=== PATIENT | female | born 1950 | race Caucasian/White ===

== ENCOUNTER 2016-06-04 04:11 | Emergency (ER) | payer MEDICARE ==
[~2016-06-04] VITALS: Ht 154.9 cm; Wt 107.7 kg
[~2016-06-04 04:11] MED LIST: ALDACTONE 100M100 MG PO; ARIMIDEX1 MG PO; ARMIDEX; BIAXIN 500MG T500 MG PO; CEFTIN 250250 MG/TAB PO; CEFTIN500 MG PO; CRESTOR5 MG PO; ENULOSE10 GM/15 M PO; ENULOSE10 GM/151 PO; HCTZ 25MG25 MG PO; HYGROTON25 MG PO; K-TAB20 PO; LASIX 20MG TABL20 MG PO; LEVAQUIN 5500 MG/TA1 PO; LEVAQUIN 750MG750 M1 PO; LEXAPRO 10MG10 MG PO; LEXAPRO 5MG5 MG PO; LEXAPRO10 MG PO; MYRBETR25MG PO; OMNICEF 300MG300 MG PO; PERCOCET 325 MG1 TA2 PO; PHENERGAN 25 TA25 MG PO; PRILOSEC 20MG20 MG PO; PYRIDIUM200 M1 PO; ROXICODONE 55 MG/TAB PO; ULTRAM 50MG TAB50 MG PO; VESICARE; VESICARE10 MG PO; XIFAXAN550 MG PO; ZOFRAN 4MG T4 MG/TAB PO; [UNRECOGNIZED DRUG - REMARK]; [UNRECOGNIZED DRUG - REMARK]
[2016-06-04 04:12] VITALS: TEMP 98.1
[2016-06-04 04:39] LABS: BASO % 0.5 % (0.0-2.0); EOS # 0.1 (0.0-0.7); EOS % 2.9 % (0-4.0); GRAN # 1.4 (1.4-6.5); GRAN % 68.2 % (42.2-75.2); LYMPH # 0.4 (1.2-3.4); LYMPH % 18.1 % (20.0-51.0); MEAN CELL VOLUME 95 fl (80.0-100.0); MEAN CORPUSCULAR HGB CONC 33 g/dl (33.0-37.0); MEAN PLATELET VOLUME 11.9 fl (7.4-10.4); MONO # 0.2 (0.1-0.6); MONO % 9.8 % (1.7-9.3); RED BLOOD COUNT 3.51 M/mm3 (4.10-5.30); REDCELL DISTRIBUTION WIDTH-CV 13.9 % (11.5-14.5)
[2016-06-04 04:44] LABS: INR 1.4 (0.8-3.0); PROTHROMBIN TIME 15.3 SECONDS (9.7-12.8)
[2016-06-04 04:45] LABS: HEMATOCRIT 33.4 % (37.0-47.0); HEMOGLOBIN 10.9 g/dl (12.5-16.0); MEAN CORPUSCULAR HEMOGLOBIN 31 pg (27.0-31.0)
[2016-06-04 04:46] LABS: PLATELET COUNT 44 K/mm3 (130-400)
[2016-06-04 04:48] LABS: ADJUSTED CALCIUM 9.3 mg/dL (8.4-10.2); ALANINE AMINOTRANSFERASE 44 U/L (9-52); ALKALINE PHOSPHATASE 90 U/L (50-136); ANION GAP 9 mmol/L (7-16); BILIRUBIN,TOTAL 2.1 mg/dL (0.0-1.0); BLOOD UREA NITROGEN 10 mg/dL (7-17); CALCIUM 8.5 mg/dL (8.4-10.2); CARBON DIOXIDE 24 mmol/L (22-30); CHLORIDE 109 mmol/L (98-107); CREATININE, serum 0.54 mg/dL (0.52-1.25); GLUCOSE 97 mg/dL (74-106); POTASSIUM 4.1 mmol/L (3.4-5.0); SODIUM 141 mmol/L (137-145)
[2016-06-04 04:59] LABS: B-TYPE NATRIURETIC PEPTIDE 54 pg/mL (0-125)
[2016-06-04 05:01] LABS: TROPONIN-I < 0.012 ng/mL (0.000-0.034)
[2016-06-04 05:36] VITALS: BP 134/82; PULSE 94
[2016-12-13] MEDS ORDERED: CEFTIN500 MG PO (03:13)
== END 2016-06-04 05:45 | disposition home or self-care (01) ==
LOC: COL.ER 04:11
PROVIDERS: Emergency Medicine
DX: J06.9 Acute upper respiratory infection, unspecified (principal); R07.9 Chest pain, unspecified; M54.9 Dorsalgia, unspecified

== ENCOUNTER 2016-06-05 07:55 | Emergency (ER) | payer MEDICARE ==
[~2016-06-05] VITALS: Ht 154.9 cm; Wt 107.7 kg
[2016-06-05 07:56] VITALS: TEMP 98.6
[2016-06-05 08:33] LABS: BASO % 0.5 % (0.0-2.0); EOS % 1.4 % (0-4.0); GRAN # 1.2 (1.4-6.5); GRAN % 59.3 % (42.2-75.2); LYMPH # 0.5 (1.2-3.4); MEAN CELL VOLUME 95 fl (80.0-100.0); MEAN CORPUSCULAR HGB CONC 33 g/dl (33.0-37.0); MEAN PLATELET VOLUME 12.4 fl (7.4-10.4); MONO # 0.3 (0.1-0.6); MONO % 16.3 % (1.7-9.3); RED BLOOD COUNT 3.53 M/mm3 (4.10-5.30); REDCELL DISTRIBUTION WIDTH-CV 14.1 % (11.5-14.5); WHITE BLOOD COUNT 2.1 K/mm3 (4.8-10.8)
[2016-06-05 08:36] LABS: HEMATOCRIT 33.4 % (37.0-47.0); HEMOGLOBIN 11.1 g/dl (12.5-16.0); MEAN CORPUSCULAR HEMOGLOBIN 31 pg (27.0-31.0)
[2016-06-05 08:38] LABS: PLATELET COUNT 40 K/mm3 (130-400)
[2016-06-05 08:46] LABS: ADJUSTED CALCIUM 9.1 mg/dL (8.4-10.2); ALBUMIN 2.9 gm/dL (3.5-5.0); BILIRUBIN,TOTAL 2.6 mg/dL (0.0-1.0); CALCIUM 8.2 mg/dL (8.4-10.2); CREATININE, serum 0.53 mg/dL (0.52-1.25); POTASSIUM 3.7 mmol/L (3.4-5.0)
[2016-06-05 09:01] LABS: PH 7 (5-8); SQUAMOUS EPITHELIAL 0-2 /hpf; URINE APPEARANCE Clear; URINE BACTERIA None Seen /hpf; URINE BILIRUBIN Negative (NEGATIVE); URINE BLOOD Negative (NEGATIVE); URINE COLOR Yellow; URINE GLUCOSE Negative (NEGATIVE); URINE KETONE Negative (NEGATIVE); URINE RBC 0-2 /hpf; URINE UROBILINOGEN >=4.0 mg/dL (NEGATIVE); URINE WBC 0-2 /hpf
[2016-06-05 10:07] VITALS: BP 144/71; PULSE 81
[2016-12-13] MEDS ORDERED: CEFTIN500 MG PO (03:13)
== END 2016-06-05 10:06 | disposition home or self-care (01) ==
LOC: COL.ER 07:55
PROVIDERS: Physician Assistant
DX: M54.5 Low back pain (principal)
CPT/HCPCS: J1885; J3010

== ENCOUNTER 2016-12-10 13:29 | Emergency (ER) | payer MEDICARE ==
[~2016-12-10] VITALS: Ht 157.5 cm; Wt 107.7 kg
[2016-12-10 13:46] VITALS: TEMP 98.3
[2016-12-10 15:52] LABS: BASO % 0.4 % (0.0-2.0); EOS # 0.1 (0.0-0.7); GRAN # 1.3 (1.4-6.5); GRAN % 54.6 % (42.2-75.2); HEMOGLOBIN 12.1 g/dl (12.5-16.0); LYMPH # 0.8 (1.2-3.4); LYMPH % 32.6 % (20.0-51.0); MEAN CELL VOLUME 97 fl (80.0-100.0); MEAN CORPUSCULAR HEMOGLOBIN 33 pg (27.0-31.0); MEAN CORPUSCULAR HGB CONC 34 g/dl (33.0-37.0); MEAN PLATELET VOLUME 11.8 fl (7.4-10.4); MONO # 0.2 (0.1-0.6); MONO % 7.4 % (1.7-9.3); RED BLOOD COUNT 3.67 M/mm3 (4.10-5.30); REDCELL DISTRIBUTION WIDTH-CV 13.3 % (11.5-14.5); WHITE BLOOD COUNT 2.4 K/mm3 (4.8-10.8)
[2016-12-10 15:56] LABS: PH 7 (5-8); URINE APPEARANCE Turbid; URINE BACTERIA Rare /hpf; URINE BILIRUBIN Negative (NEGATIVE); URINE BLOOD Negative (NEGATIVE); URINE COLOR Amber; URINE GLUCOSE Negative (NEGATIVE); URINE KETONE Negative (NEGATIVE); URINE RBC 0-2 /hpf; URINE UROBILINOGEN >=4.0 mg/dL (NEGATIVE)
[2016-12-10 15:57] LABS: HEMATOCRIT 35.7 % (37.0-47.0)
[2016-12-10 16:01] LABS: PLATELET COUNT 42 K/mm3 (130-400)
[2016-12-10 16:08] LABS: ADJUSTED CALCIUM 9.4 mg/dL (8.4-10.2); ALANINE AMINOTRANSFERASE 34 U/L (9-52); ALBUMIN 3.2 gm/dL (3.5-5.0); ALKALINE PHOSPHATASE 82 U/L (50-136); ANION GAP 7 mmol/L (7-16); BILIRUBIN,TOTAL 2.2 mg/dL (0.0-1.0); BLOOD UREA NITROGEN 16 mg/dL (7-17); CALCIUM 8.8 mg/dL (8.4-10.2); CARBON DIOXIDE 26 mmol/L (22-30); CHLORIDE 110 mmol/L (98-107); CREATINE KINASE 76 U/L (30-135); GLUCOSE 81 mg/dL (74-106); POTASSIUM 3.8 mmol/L (3.4-5.0); SODIUM 143 mmol/L (137-145); TOTAL PROTEIN 6.9 gm/dL (6.4-8.2)
[2016-12-10 16:26] LABS: TROPONIN-I < 0.012 ng/mL (0.000-0.034)
[2016-12-10 17:02] VITALS: BP 142/78; PULSE 76
[2016-12-13] MEDS ORDERED: CEFTIN500 MG PO (03:13)
== END 2016-12-10 17:03 | disposition home or self-care (01) ==
LOC: COL.ER 13:29
PROVIDERS: Emergency Medicine
DX: D61.818 Other pancytopenia (principal); I10 Essential (primary) hypertension; Z87.891 Personal history of nicotine dependence; Z87.19 Personal history of other diseases of the digestive system; Z87.440 Personal history of urinary (tract) infections; Z90.49 Acquired absence of other specified parts of digestive tract; Z98.890 Other specified postprocedural states
CPT/HCPCS: J7030

== ENCOUNTER 2017-01-07 18:19 | Emergency (ER) | payer MEDICARE ==
[~2017-01-07] VITALS: Ht 157.5 cm; Wt 101.7 kg
[2017-01-07 18:29] VITALS: BP 151/67; TEMP 97.8
[2017-01-07 19:05] LABS: PH 5 (5-8); URINE APPEARANCE Cloudy; URINE BACTERIA None Seen /hpf; URINE BILIRUBIN Negative (NEGATIVE); URINE BLOOD 2+ (NEGATIVE); URINE COLOR Amber; URINE GLUCOSE Negative (NEGATIVE); URINE KETONE Negative (NEGATIVE); URINE RBC 20-50 /hpf; URINE WBC None Seen /hpf
[2017-01-07 19:20] LABS: BASO % 0.5 % (0.0-2.0); EOS # 0.1 (0.0-0.7); EOS % 3.9 % (0-4.0); GRAN # 1.3 (1.4-6.5); GRAN % 62.4 % (42.2-75.2); LYMPH # 0.5 (1.2-3.4); LYMPH % 24.9 % (20.0-51.0); MEAN CELL VOLUME 97 fl (80.0-100.0); MEAN CORPUSCULAR HGB CONC 34 g/dl (33.0-37.0); MEAN PLATELET VOLUME 11.8 fl (7.4-10.4); MONO # 0.2 (0.1-0.6); MONO % 8.3 % (1.7-9.3); PLATELET COUNT 56 K/mm3 (130-400); RED BLOOD COUNT 3.35 M/mm3 (4.10-5.30); REDCELL DISTRIBUTION WIDTH-CV 14.4 % (11.5-14.5); WHITE BLOOD COUNT 2.1 K/mm3 (4.8-10.8)
[2017-01-07 19:27] LABS: ADJUSTED CALCIUM 9.5 mg/dL (8.4-10.2); BILIRUBIN,TOTAL 1.8 mg/dL (0.0-1.0); CALCIUM 8.7 mg/dL (8.4-10.2); CREATININE, serum 0.46 mg/dL (0.52-1.25); TOTAL PROTEIN 6.6 gm/dL (6.4-8.2)
[2017-01-07 19:31] LABS: HEMATOCRIT 32.6 % (37.0-47.0); HEMOGLOBIN 11.1 g/dl (12.5-16.0); MEAN CORPUSCULAR HEMOGLOBIN 33 pg (27.0-31.0)
[2017-01-07 21:03] VITALS: PULSE 74
== END 2017-01-07 21:03 | disposition home or self-care (01) ==
LOC: COL.ER 18:19
PROVIDERS: Physician Assistant
DX: R19.7 Diarrhea, unspecified (principal); R10.2 Pelvic and perineal pain; R31.29 Other microscopic hematuria; M54.5 Low back pain; R11.0 Nausea; N20.0 Calculus of kidney; K74.60 Unspecified cirrhosis of liver; D69.6 Thrombocytopenia, unspecified; D72.819 Decreased white blood cell count, unspecified; R30.0 Dysuria
CPT/HCPCS: J2405; J3010; J7040

== ENCOUNTER 2017-02-04 19:53 | Inpatient (IN) | payer MEDICARE ==
[~2017-02-04] VITALS: Ht 157.5 cm; Wt 106.4 kg
[2017-02-04] MEDS ORDERED: VESICARE10 MG PO (19:56)
[2017-02-04 20:29] LABS: EOS % 0.5 % (0-4.0); GRAN # 3.5 (1.4-6.5); GRAN % 82.7 % (42.2-75.2); HEMOGLOBIN 12.2 g/dl (12.5-16.0); LYMPH # 0.4 (1.2-3.4); LYMPH % 8.9 % (20.0-51.0); MEAN CELL VOLUME 97 fl (80.0-100.0); MEAN CORPUSCULAR HEMOGLOBIN 33 pg (27.0-31.0); MEAN CORPUSCULAR HGB CONC 35 g/dl (33.0-37.0); MEAN PLATELET VOLUME 12.5 fl (7.4-10.4); MONO # 0.3 (0.1-0.6); MONO % 7.7 % (1.7-9.3); RED BLOOD COUNT 3.67 M/mm3 (4.10-5.30); REDCELL DISTRIBUTION WIDTH-CV 13.7 % (11.5-14.5); WHITE BLOOD COUNT 4.2 K/mm3 (4.8-10.8)
[2017-02-04 20:40] LABS: HEMATOCRIT 35.4 % (37.0-47.0)
[2017-02-04 20:41] LABS: PLATELET COUNT 44 K/mm3 (130-400)
[2017-02-04 20:47] LABS: PH 8 (5-8); SQUAMOUS EPITHELIAL 0-2 /hpf; URINE APPEARANCE Clear; URINE BACTERIA None Seen /hpf; URINE BILIRUBIN Negative (NEGATIVE); URINE BLOOD Negative (NEGATIVE); URINE COLOR Yellow; URINE GLUCOSE Negative (NEGATIVE); URINE KETONE Negative (NEGATIVE); URINE UROBILINOGEN >=4.0 mg/dL (NEGATIVE)
[2017-02-04 20:48] LABS: URINE WBC >50 /hpf
[2017-02-04 20:54] LABS: ADJUSTED CALCIUM 9.4 mg/dL (8.4-10.2); BILIRUBIN,TOTAL 2.6 mg/dL (0.0-1.0); C-REACTIVE PROTEIN 1.1 mg/dL (0.0-0.9); CALCIUM 8.6 mg/dL (8.4-10.2); CREATININE, serum 0.49 mg/dL (0.52-1.25); POTASSIUM 3.5 mmol/L (3.4-5.0); TOTAL PROTEIN 6.8 gm/dL (6.4-8.2)
[2017-02-04 21:07] LABS: INFLUENZA B NEGATIVE
[2017-02-04 22:07] VITALS: BP 112/63; PULSE 107; TEMP 98.4
[2017-02-05 03:29] VITALS: BP 134/68; PULSE 91; TEMP 98.1
[2017-02-05 07:37] LABS: BASO % 0.3 % (0.0-2.0); CREATININE, serum 0.45 mg/dL (0.52-1.25); GRAN # 2.4 (1.4-6.5); GRAN % 80.3 % (42.2-75.2); LYMPH # 0.3 (1.2-3.4); LYMPH % 9.2 % (20.0-51.0); MEAN CELL VOLUME 98 fl (80.0-100.0); MEAN CORPUSCULAR HGB CONC 34 g/dl (33.0-37.0); MEAN PLATELET VOLUME 13.6 fl (7.4-10.4); MONO # 0.3 (0.1-0.6); MONO % 9.5 % (1.7-9.3); POTASSIUM 3.6 mmol/L (3.4-5.0); RED BLOOD COUNT 3.48 M/mm3 (4.10-5.30); REDCELL DISTRIBUTION WIDTH-CV 13.9 % (11.5-14.5)
[2017-02-05 07:45] LABS: HEMOGLOBIN 11.6 g/dl (12.5-16.0); MEAN CORPUSCULAR HEMOGLOBIN 33 pg (27.0-31.0)
[2017-02-05 07:46] LABS: PLATELET COUNT 31 K/mm3 (130-400)
[2017-02-05 08:10] VITALS: BP 137/69; PULSE 96; TEMP 100.9
[2017-02-05 11:31] VITALS: BP 119/59; PULSE 85; TEMP 99.2
[2017-02-05 15:16] VITALS: BP 109/59; PULSE 83; TEMP 98.4
[2017-02-05 20:32] VITALS: BP 149/84; PULSE 94; TEMP 98.8
[2017-02-06] VITALS (7 sets, daily range): BP systolic 109–138; BP diastolic 57–86; PULSE 72–83; TEMP 97.8–99.7
[2017-02-06 08:30] LABS: MEAN CELL VOLUME 99 fl (80.0-100.0); MEAN CORPUSCULAR HGB CONC 33 g/dl (33.0-37.0); MEAN PLATELET VOLUME 12.6 fl (7.4-10.4); RED BLOOD COUNT 3.42 M/mm3 (4.10-5.30); REDCELL DISTRIBUTION WIDTH-CV 14.3 % (11.5-14.5); WHITE BLOOD COUNT 2.1 K/mm3 (4.8-10.8)
[2017-02-06 08:38] LABS: HEMATOCRIT 33.7 % (37.0-47.0); HEMOGLOBIN 11.2 g/dl (12.5-16.0); MEAN CORPUSCULAR HEMOGLOBIN 33 pg (27.0-31.0)
[2017-02-06 08:40] LABS: PLATELET COUNT 31 K/mm3 (130-400)
[2017-02-06 08:41] LABS: ADD PATHOLOGY DIFF REVIEW NO
[2017-02-06 09:04] LABS: BAND 60 % (0-10); NEUTROPHILS 26 % (42.0-75.2); TOTAL CELLS COUNTED 100
[2017-02-06 09:05] LABS: PLATELET ESTIMATE DECREASED (NORMAL)
[2017-02-06 09:06] LABS: TOXIC GRANULATION PRESENT
[2017-02-07 04:54] VITALS: BP 114/61; PULSE 69; TEMP 97
[2017-02-07 07:25] VITALS: BP 101/51; PULSE 57; TEMP 97.6
[2017-02-07 07:30] LABS: MEAN CELL VOLUME 98 fl (80.0-100.0); MEAN CORPUSCULAR HGB CONC 34 g/dl (33.0-37.0); MEAN PLATELET VOLUME 12.8 fl (7.4-10.4); RED BLOOD COUNT 3.16 M/mm3 (4.10-5.30); REDCELL DISTRIBUTION WIDTH-CV 14.4 % (11.5-14.5)
[2017-02-07 07:32] LABS: ADD PATHOLOGY DIFF REVIEW NO; HEMATOCRIT 30.9 % (37.0-47.0); HEMOGLOBIN 10.4 g/dl (12.5-16.0); MEAN CORPUSCULAR HEMOGLOBIN 33 pg (27.0-31.0); PLATELET COUNT 30 K/mm3 (130-400); WHITE BLOOD COUNT 1.5 K/mm3 (4.8-10.8)
[2017-02-07 07:48] LABS: ADJUSTED CALCIUM 8.9 mg/dL (8.4-10.2); BILIRUBIN,TOTAL 1.9 mg/dL (0.0-1.0); CALCIUM 7.3 mg/dL (8.4-10.2); CREATININE, serum 0.4 mg/dL (0.52-1.25); POTASSIUM 3.5 mmol/L (3.4-5.0); TOTAL PROTEIN 5.2 gm/dL (6.4-8.2)
[2017-02-07 08:11] LABS: BAND 15 % (0-10); EOSINOPHIL 3 % (0-4); METAMYELOCYTE 1 % (0-0); NEUTROPHILS 43 % (42.0-75.2); PLATELET ESTIMATE DECREASED (NORMAL); TOTAL CELLS COUNTED 100
[2017-02-07] MEDS ORDERED: CIPRO750 MG PO (10:25)
[2017-02-07 11:41] VITALS: BP 125/63; PULSE 75; TEMP 98.7
[2017-02-07 15:53] VITALS: BP 134/78; PULSE 72; TEMP 98
== END 2017-02-07 14:25 | disposition home or self-care (01) | DRG 690 ==
LOC: COL.ER 19:53 → MEDICAL 21:19
PROVIDERS: Emergency Medicine; Nurse Practitioner Family
DX: N39.0 Urinary tract infection, site not specified (principal); K76.6 Portal hypertension; Z68.41 Body mass index [BMI] 40.0-44.9, adult; N10 Acute pyelonephritis; Z66 Do not resuscitate; I10 Essential (primary) hypertension; K74.60 Unspecified cirrhosis of liver; Z85.3 Personal history of malignant neoplasm of breast; Z87.891 Personal history of nicotine dependence; D69.6 Thrombocytopenia, unspecified; D64.9 Anemia, unspecified; B37.2 Candidiasis of skin and nail; B96.4 Proteus (mirabilis) (morganii) as the cause of diseases classified elsewhere; E66.01 Morbid (severe) obesity due to excess calories
CPT/HCPCS: 99223-AI; 99233-AI; 99239; J0696; J2185; J7030; Q9967

== ENCOUNTER 2017-04-27 08:24 | Emergency (ER) | payer MEDICARE ==
[~2017-04-27] VITALS: Ht 157.5 cm; Wt 102.3 kg
[~2017-04-27 08:24] MED LIST changes: +CIPRO750 MG PO
[2017-04-27 08:27] VITALS: TEMP 97.9
[2017-04-27] MEDS ORDERED: BACTRIM 400 MG-1 TAB PO (08:31)
[2017-04-27 08:49] LABS: COLLECTION METHOD CATHETER
[2017-04-27 09:01] LABS: MUCOUS Present /lpf; PH 6 (5-8); SQUAMOUS EPITHELIAL 0-2 /hpf; URINE APPEARANCE Clear; URINE BACTERIA Rare /hpf; URINE BILIRUBIN Negative (NEGATIVE); URINE BLOOD Negative (NEGATIVE); URINE COLOR Yellow; URINE GLUCOSE Negative (NEGATIVE); URINE KETONE Negative (NEGATIVE); URINE LEUKOCYTE ESTERASE Negative (NEGATIVE); URINE PROTEIN(semi-quant) Negative (NEGATIVE); URINE UROBILINOGEN >=4.0 mg/dL (NEGATIVE)
[2017-04-27 09:43] LABS: MEAN CELL VOLUME 101 fl (80.0-100.0); MEAN CORPUSCULAR HGB CONC 33 g/dl (33.0-37.0); MEAN PLATELET VOLUME 11.9 fl (7.4-10.4); RED BLOOD COUNT 3.43 M/mm3 (4.10-5.30)
[2017-04-27 09:50] LABS: ADJUSTED CALCIUM 8.9 mg/dL (8.4-10.2); ALBUMIN 3.2 gm/dL (3.5-5.0); BILIRUBIN,TOTAL 1.9 mg/dL (0.0-1.0); CALCIUM 8.3 mg/dL (8.4-10.2); CREATININE, serum 0.5 mg/dL (0.52-1.25); POTASSIUM 3.9 mmol/L (3.4-5.0); TOTAL PROTEIN 7.2 gm/dL (6.4-8.2)
[2017-04-27 09:53] LABS: HEMATOCRIT 34.7 % (37.0-47.0); HEMOGLOBIN 11.6 g/dl (12.5-16.0); MEAN CORPUSCULAR HEMOGLOBIN 34 pg (27.0-31.0)
[2017-04-27 09:54] LABS: ADD PATHOLOGY DIFF REVIEW NO; PLATELET COUNT 41 K/mm3 (130-400)
[2017-04-27 10:14] LABS: BAND 3 % (0-10); EOSINOPHIL 4 % (0-4); LYMPHOCYTE 31 % (20.0-51.0); NEUTROPHILS 55 % (42.0-75.2); PLATELET ESTIMATE DECREASED (NORMAL); TOTAL CELLS COUNTED 100
[2017-04-27] MEDS ORDERED: CIPRO 500MG TA500 MG PO (11:05)
[2017-04-27] MEDS ORDERED: PYRIDIUM200 M1 PO (11:05)
[2017-04-27 11:43] VITALS: BP 123/50; PULSE 78
== END 2017-04-27 11:43 | disposition home or self-care (01) ==
LOC: COL.ER 08:24
PROVIDERS: Emergency Medicine
DX: R10.30 Lower abdominal pain, unspecified (principal); D61.818 Other pancytopenia; Z87.440 Personal history of urinary (tract) infections
CPT/HCPCS: J2405; J7030; J7050; Q9967

== ENCOUNTER 2017-06-18 11:32 | Emergency (ER) | payer MEDICARE ==
[~2017-06-18] VITALS: Ht 157.5 cm; Wt 100.0 kg
[~2017-06-18 11:32] MED LIST changes: +BACTRIM 400 MG-1 TAB PO; +CIPRO 500MG TA500 MG PO
[2017-06-18 11:35] VITALS: BP 133/66; TEMP 98.4
[2017-06-18] MEDS ORDERED: KRISTALOSE10 GM/PACK PO (11:39)
[2017-06-18 12:31] LABS: COLLECTION METHOD CLEAN CATCH
[2017-06-18 12:39] LABS: MUCOUS Present /lpf; PH 7 (5-8); URINE APPEARANCE Cloudy; URINE BACTERIA Moderate /hpf; URINE BILIRUBIN Negative (NEGATIVE); URINE BLOOD Negative (NEGATIVE); URINE COLOR Amber; URINE GLUCOSE Negative (NEGATIVE); URINE KETONE Negative (NEGATIVE); URINE LEUKOCYTE ESTERASE 2+ (NEGATIVE); URINE NITRATE Positive (NEGATIVE); URINE PROTEIN(semi-quant) Negative (NEGATIVE); URINE UROBILINOGEN >=4.0 mg/dL (NEGATIVE)
[2017-06-18] MEDS ORDERED: CEPHALEXIN500 M1 PO (13:24)
[2017-06-18 13:45] VITALS: PULSE 66
== END 2017-06-18 13:46 | disposition home or self-care (01) ==
LOC: COL.ER 11:32
PROVIDERS: Physician Assistant
DX: N39.0 Urinary tract infection, site not specified (principal); I10 Essential (primary) hypertension; F32.9 Major depressive disorder, single episode, unspecified; E78.5 Hyperlipidemia, unspecified; Z85.3 Personal history of malignant neoplasm of breast
CPT/HCPCS: J1885

== ENCOUNTER 2017-07-27 17:44 | Emergency (ER) | payer MEDICARE ==
[~2017-07-27] VITALS: Ht 157.5 cm; Wt 100.9 kg
[~2017-07-27 17:44] MED LIST changes: +CEPHALEXIN500 M1 PO; +KRISTALOSE10 GM/PACK PO
[2017-07-27 17:48] VITALS: TEMP 97.9
[2017-07-27 18:30] LABS: COLLECTION METHOD CLEAN CATCH
[2017-07-27 18:39] LABS: MUCOUS Present /lpf; PH 7 (5-8); SQUAMOUS EPITHELIAL 0-2 /hpf; URINE APPEARANCE Clear; URINE BACTERIA None Seen /hpf; URINE BILIRUBIN Negative (NEGATIVE); URINE BLOOD Negative (NEGATIVE); URINE COLOR Yellow; URINE GLUCOSE Negative (NEGATIVE); URINE KETONE Negative (NEGATIVE); URINE LEUKOCYTE ESTERASE Negative (NEGATIVE); URINE NITRATE Negative (NEGATIVE); URINE PROTEIN(semi-quant) Negative (NEGATIVE); URINE RBC 0-2 /hpf; URINE UROBILINOGEN >=4.0 mg/dL (NEGATIVE)
[2017-07-27 18:43] LABS: ALBUMIN 3.3 gm/dL (3.5-5.0); BASO % 0.3 % (0.0-2.0); BILIRUBIN,TOTAL 2.8 mg/dL (0.0-1.0); CALCIUM 8.3 mg/dL (8.4-10.2); CREATININE, serum 0.46 mg/dL (0.52-1.25); EOS % 0.3 % (0-4.0); GRAN # 3.2 (1.4-6.5); GRAN % 85.1 % (42.2-75.2); HEMOGLOBIN 12.2 g/dl (12.5-16.0); LYMPH # 0.3 (1.2-3.4); LYMPH % 6.6 % (20.0-51.0); MEAN CELL VOLUME 99 fl (80.0-100.0); MEAN CORPUSCULAR HEMOGLOBIN 33 pg (27.0-31.0); MEAN CORPUSCULAR HGB CONC 34 g/dl (33.0-37.0); MEAN PLATELET VOLUME 12.4 fl (7.4-10.4); MONO # 0.3 (0.1-0.6); MONO % 7.4 % (1.7-9.3); POTASSIUM 3.5 mmol/L (3.4-5.0); RED BLOOD COUNT 3.66 M/mm3 (4.10-5.30); REDCELL DISTRIBUTION WIDTH-CV 13.1 % (11.5-14.5); TOTAL PROTEIN 7.2 gm/dL (6.4-8.2)
[2017-07-27 19:00] LABS: HEMATOCRIT 36.3 % (37.0-47.0)
[2017-07-27 19:02] LABS: PLATELET COUNT 37 K/mm3 (130-400)
[2017-07-27] MEDS ORDERED: ULTRAM 50MG TAB50 MG PO (20:10)
[2017-07-27 20:24] VITALS: BP 134/81; PULSE 110
== END 2017-07-27 20:35 | disposition home or self-care (01) ==
LOC: COL.ER 17:44
PROVIDERS: Nurse Practitioner
DX: R10.2 Pelvic and perineal pain (principal); I10 Essential (primary) hypertension; Z85.3 Personal history of malignant neoplasm of breast; Z87.891 Personal history of nicotine dependence; Z87.19 Personal history of other diseases of the digestive system; Z87.448 Personal history of other diseases of urinary system; Z88.6 Allergy status to analgesic agent; Z90.49 Acquired absence of other specified parts of digestive tract; Z98.890 Other specified postprocedural states
CPT/HCPCS: J1170; J7030; Q9967

== ENCOUNTER 2017-11-27 18:39 | Emergency (ER) | payer MEDICARE ==
[~2017-11-27] VITALS: Ht 157.5 cm; Wt 100.0 kg
[2017-11-27 19:25] LABS: COLLECTION METHOD CLEAN CATCH
[2017-11-27 19:31] LABS: BASO % 0.2 % (0.0-2.0); EOS % 0.2 % (0-4.0); GRAN # 3.8 (1.4-6.5); GRAN % 82.9 % (42.2-75.2); HEMOGLOBIN 11.8 g/dl (12.5-16.0); LYMPH # 0.4 (1.2-3.4); LYMPH % 9.6 % (20.0-51.0); MEAN CELL VOLUME 95 fl (80.0-100.0); MEAN CORPUSCULAR HEMOGLOBIN 33 pg (27.0-31.0); MEAN CORPUSCULAR HGB CONC 35 g/dl (33.0-37.0); MEAN PLATELET VOLUME 12.1 fl (7.4-10.4); MONO # 0.3 (0.1-0.6); MONO % 6.7 % (1.7-9.3); RED BLOOD COUNT 3.57 M/mm3 (4.10-5.30); REDCELL DISTRIBUTION WIDTH-CV 13.3 % (11.5-14.5)
[2017-11-27 19:32] LABS: HEMATOCRIT 33.9 % (37.0-47.0)
[2017-11-27 19:37] LABS: PLATELET COUNT 49 K/mm3 (130-400)
[2017-11-27 19:46] LABS: BILIRUBIN,TOTAL 4.1 mg/dL (0.0-1.0); C-REACTIVE PROTEIN 1.1 mg/dL (0.0-0.9); CALCIUM 8.2 mg/dL (8.4-10.2); CREATININE, serum 0.46 mg/dL (0.52-1.25); POTASSIUM 3.8 mmol/L (3.4-5.0); TOTAL PROTEIN 6.8 gm/dL (6.4-8.2)
[2017-11-27 19:56] LABS: MUCOUS Present /lpf; PH 8 (5-8); URINE APPEARANCE Clear; URINE BACTERIA None Seen /hpf; URINE BILIRUBIN Negative (NEGATIVE); URINE BLOOD Negative (NEGATIVE); URINE COLOR Amber; URINE GLUCOSE Negative (NEGATIVE); URINE KETONE Negative (NEGATIVE); URINE LEUKOCYTE ESTERASE Negative (NEGATIVE); URINE NITRATE Negative (NEGATIVE); URINE PROTEIN(semi-quant) Negative (NEGATIVE); URINE RBC 0-2 /hpf; URINE UROBILINOGEN >=4.0 mg/dL (NEGATIVE)
[2017-11-27 20:37] LABS: INR 1.6 (0.8-3.0); PROTHROMBIN TIME 17.8 SECONDS (9.7-12.8)
[2017-11-27 20:40] LABS: PARTIAL THROMBOPLASTIN TIME 39.8 SECONDS (26.0-37.0)
[2017-11-27 21:07] VITALS: BP 117/61; PULSE 83; TEMP 98.5
== END 2017-11-27 21:07 | disposition home or self-care (01) ==
LOC: COL.ER 18:39
PROVIDERS: Emergency Medicine
DX: K74.60 Unspecified cirrhosis of liver (principal); R50.9 Fever, unspecified; I10 Essential (primary) hypertension; F32.9 Major depressive disorder, single episode, unspecified; E78.00 Pure hypercholesterolemia, unspecified
CPT/HCPCS: J0696; J7030

== ENCOUNTER 2018-03-15 09:19 | Emergency (ER) | payer MEDICARE ==
[~2018-03-15] VITALS: Ht 157.5 cm; Wt 100.9 kg
[2018-03-15 09:26] VITALS: TEMP 98
[2018-03-15 10:16] LABS: COLLECTION METHOD CLEAN CATCH
[2018-03-15] MEDS ORDERED: LIDODERM 5% PATC1 EA TP (10:21)
[2018-03-15] MEDS ORDERED: FLEXERIL 1010 MG/TAB PO (10:21)
[2018-03-15 10:30] LABS: MUCOUS Present /lpf; PH 7 (5-8); URINE APPEARANCE Hazy; URINE BACTERIA Rare /hpf; URINE BILIRUBIN Negative (NEGATIVE); URINE BLOOD Negative (NEGATIVE); URINE COLOR Yellow; URINE GLUCOSE Negative (NEGATIVE); URINE KETONE Negative (NEGATIVE); URINE LEUKOCYTE ESTERASE Negative (NEGATIVE); URINE NITRATE Positive (NEGATIVE); URINE PROTEIN(semi-quant) Negative (NEGATIVE); URINE RBC None Seen /hpf; URINE UROBILINOGEN >=4.0 mg/dL (NEGATIVE)
[2018-03-15 11:12] VITALS: BP 136/89; PULSE 70
== END 2018-03-15 11:20 | disposition home or self-care (01) ==
LOC: COL.ER 09:19
PROVIDERS: Physician Assistant
DX: S39.012A Strain of muscle, fascia and tendon of lower back, initial encounter (principal); Z85.3 Personal history of malignant neoplasm of breast; Z90.49 Acquired absence of other specified parts of digestive tract; Z98.890 Other specified postprocedural states; X50.0XXA Overexertion from strenuous movement or load, initial encounter
CPT/HCPCS: J1885

== ENCOUNTER 2018-05-04 08:37 | Emergency (ER) | payer MEDICARE ==
[~2018-05-04] VITALS: Ht 157.5 cm; Wt 101.8 kg
[~2018-05-04 08:37] MED LIST changes: +FLEXERIL 1010 MG/TAB PO; +LIDODERM 5% PATC1 EA TP
[2018-05-04 08:43] VITALS: TEMP 98.2
[2018-05-04 09:36] LABS: EOS % 0.3 % (0-4.0); GRAN # 3.4 (1.4-6.5); GRAN % 89.2 % (42.2-75.2); LYMPH # 0.2 (1.2-3.4); LYMPH % 3.9 % (20.0-51.0); MEAN CELL VOLUME 99 fl (80.0-100.0); MEAN CORPUSCULAR HEMOGLOBIN 34 pg (27.0-31.0); MEAN CORPUSCULAR HGB CONC 34 g/dl (33.0-37.0); MEAN PLATELET VOLUME 11.9 fl (7.4-10.4); MONO # 0.2 (0.1-0.6); MONO % 6.3 % (1.7-9.3); RED BLOOD COUNT 3.55 M/mm3 (4.10-5.30); REDCELL DISTRIBUTION WIDTH-CV 13.5 % (11.5-14.5)
[2018-05-04 09:51] LABS: ALBUMIN 3.2 gm/dL (3.5-5.0); BILIRUBIN,TOTAL 3.3 mg/dL (0.0-1.0); CALCIUM 8.4 mg/dL (8.4-10.2); CREATININE, serum 0.43 mg/dL (0.52-1.25); POTASSIUM 3.7 mmol/L (3.4-5.0)
[2018-05-04 10:02] LABS: COLLECTION METHOD CLEAN CATCH
[2018-05-04 10:03] LABS: HEMATOCRIT 35.2 % (37.0-47.0); PLATELET COUNT 40 K/mm3 (130-400)
[2018-05-04 10:11] LABS: MUCOUS Present /lpf; PH 7 (5-8); SQUAMOUS EPITHELIAL 20-50 /hpf; URINE APPEARANCE Cloudy; URINE BACTERIA None Seen /hpf; URINE BILIRUBIN Negative (NEGATIVE); URINE BLOOD 1+ (NEGATIVE); URINE COLOR Yellow; URINE GLUCOSE Negative (NEGATIVE); URINE KETONE Negative (NEGATIVE); URINE LEUKOCYTE ESTERASE Negative (NEGATIVE); URINE NITRATE Negative (NEGATIVE); URINE PROTEIN(semi-quant) 1+ (NEGATIVE); URINE UROBILINOGEN >=4.0 mg/dL (NEGATIVE)
[2018-05-04] MEDS ORDERED: ZOFRAN 4MG T4 MG/TAB PO (17:40)
[2018-05-04 18:28] VITALS: BP 147/80; PULSE 98
== END 2018-05-04 18:26 | disposition home or self-care (01) ==
LOC: COL.ER 08:37
PROVIDERS: Physician Assistant
DX: B18.2 Chronic viral hepatitis C (principal); K74.60 Unspecified cirrhosis of liver; D69.6 Thrombocytopenia, unspecified; K76.6 Portal hypertension; I85.10 Secondary esophageal varices without bleeding; I86.4 Gastric varices; R16.1 Splenomegaly, not elsewhere classified; F32.9 Major depressive disorder, single episode, unspecified; Z90.49 Acquired absence of other specified parts of digestive tract; Z85.3 Personal history of malignant neoplasm of breast; Z87.891 Personal history of nicotine dependence; Z88.6 Allergy status to analgesic agent
CPT/HCPCS: J1170; J2270; J2405; J2550; J7030; Q9967

== ENCOUNTER → 2018-05-31 | Outpatient (CLI) | payer MEDICARE ==
[2018-05-31 09:09] LABS: MEAN CELL VOLUME 101 fl (80.0-100.0); MEAN CORPUSCULAR HEMOGLOBIN 33 pg (27.0-31.0); MEAN CORPUSCULAR HGB CONC 33 g/dl (33.0-37.0); MEAN PLATELET VOLUME 11.7 fl (7.4-10.4); RED BLOOD COUNT 3.59 M/mm3 (4.10-5.30); REDCELL DISTRIBUTION WIDTH-CV 13.5 % (11.5-14.5)
[2018-05-31 09:18] LABS: ALBUMIN 3.1 gm/dL (3.5-5.0); BILIRUBIN,TOTAL 2.8 mg/dL (0.0-1.0); CALCIUM 8.5 mg/dL (8.4-10.2); CREATININE, serum 0.45 mg/dL (0.52-1.25); POTASSIUM 3.8 mmol/L (3.4-5.0); TOTAL PROTEIN 7.4 gm/dL (6.4-8.2)
[2018-05-31 09:27] LABS: INR 1.4 (0.8-3.0); PROTHROMBIN TIME 15.8 SECONDS (9.7-12.8)
[2018-05-31 09:28] LABS: HEMATOCRIT 36.2 % (37.0-47.0)
[2018-05-31 09:53] LABS: PLATELET COUNT 41 K/mm3 (130-400)
[2018-05-31 09:59] LABS: BAND 2 % (0-10); EOSINOPHIL 4 % (0-4); LYMPHOCYTE 24 % (20.0-51.0); NEUTROPHILS 66 % (42.0-75.2); PLATELET ESTIMATE DECREASED (NORMAL)
[2018-06-01 00:55] LABS: HEPATITIS A ANTIBODY-IGM Negative (Negative); HEPATITIS B SURFACE ANTIGEN Negative (Negative)
[2018-06-02 13:59] LABS: CERULOPLASMIN 22.6 mg/dL (())
== END ==
LOC: COL.LAB 08:14 → COL.RAD 08:14
PROVIDERS: Physician Assistant
DX: I85.00 Esophageal varices without bleeding (principal); K74.60 Unspecified cirrhosis of liver; Z90.49 Acquired absence of other specified parts of digestive tract

== ENCOUNTER 2018-06-09 22:26 | Emergency (ER) | payer MEDICARE ==
[~2018-06-09] VITALS: Ht 157.5 cm; Wt 101.4 kg
[2018-06-09 22:26] VITALS: TEMP 97.5
[2018-06-09 22:51] LABS: BASO % 0.6 % (0.0-2.0); EOS % 2.4 % (0-4.0); GRAN % 60.3 % (42.2-75.2); HEMOGLOBIN 11.1 g/dl (12.5-16.0); LYMPH # 0.5 (1.2-3.4); LYMPH % 27.7 % (20.0-51.0); MEAN CELL VOLUME 101 fl (80.0-100.0); MEAN CORPUSCULAR HEMOGLOBIN 33 pg (27.0-31.0); MEAN CORPUSCULAR HGB CONC 33 g/dl (33.0-37.0); MEAN PLATELET VOLUME 11.6 fl (7.4-10.4); MONO # 0.2 (0.1-0.6); RED BLOOD COUNT 3.32 M/mm3 (4.10-5.30); REDCELL DISTRIBUTION WIDTH-CV 13.8 % (11.5-14.5)
[2018-06-09 22:56] LABS: HEMATOCRIT 33.6 % (37.0-47.0); PLATELET COUNT 42 K/mm3 (130-400)
[2018-06-09 23:04] LABS: COLLECTION METHOD CLEAN CATCH
[2018-06-09 23:08] LABS: ALANINE AMINOTRANSFERASE 28 U/L (9-52); ALBUMIN 2.7 gm/dL (3.5-5.0); ALKALINE PHOSPHATASE 90 U/L (50-136); ANION GAP 3 mmol/L (7-16); AST,SGOT 40 U/L (15-37); BILIRUBIN,TOTAL 1.8 mg/dL (0.0-1.0); BLOOD UREA NITROGEN 14 mg/dL (7-17); CALCIUM 8.5 mg/dL (8.4-10.2); CARBON DIOXIDE 27 mmol/L (22-30); CHLORIDE 112 mmol/L (98-107); CREATININE, serum 0.43 mg/dL (0.52-1.25); GLUCOSE 94 mg/dL (74-106); LIPASE 156 U/L (23-300); SODIUM 142 mmol/L (137-145); TOTAL PROTEIN 6.5 gm/dL (6.4-8.2)
[2018-06-09 23:09] LABS: C-REACTIVE PROTEIN < 0.5 mg/dL (0.0-0.9)
[2018-06-09 23:13] LABS: PH 7 (5-8); SQUAMOUS EPITHELIAL 0-2 /hpf; URINE APPEARANCE Cloudy; URINE BACTERIA Moderate /hpf; URINE BILIRUBIN Negative (NEGATIVE); URINE BLOOD 2+ (NEGATIVE); URINE COLOR Yellow; URINE GLUCOSE Negative (NEGATIVE); URINE KETONE Negative (NEGATIVE); URINE LEUKOCYTE ESTERASE 1+ (NEGATIVE); URINE NITRATE Positive (NEGATIVE); URINE PROTEIN(semi-quant) Negative (NEGATIVE); URINE UROBILINOGEN >=4.0 mg/dL (NEGATIVE)
[2018-06-09] MEDS ORDERED: BACTRIM DS 8001 TAB PO (23:20)
[2018-06-10 00:50] VITALS: BP 121/53; PULSE 79
[2018-06-12] MEDS ORDERED: CEPHALEXIN500 M1 PO (14:03)
== END 2018-06-10 00:50 | disposition home or self-care (01) ==
LOC: COL.ER 22:26
PROVIDERS: Family Medicine
DX: N39.0 Urinary tract infection, site not specified (principal); N12 Tubulo-interstitial nephritis, not specified as acute or chronic; I10 Essential (primary) hypertension; Z87.891 Personal history of nicotine dependence
CPT/HCPCS: J0696; J2270; J2405; J7030

== ENCOUNTER → 2018-07-16 | Outpatient (CLI) | payer MEDICARE ==
[~2018-07-16] MED LIST changes: +BACTRIM DS 8001 TAB PO
== END ==
LOC: MC.RAD 10:29
DX: Z12.31 Encounter for screening mammogram for malignant neoplasm of breast (principal); C50.412 Malignant neoplasm of upper-outer quadrant of left female breast

== ENCOUNTER 2018-08-06 23:50 | Emergency (ER) | payer MEDICARE ==
[~2018-08-06] VITALS: Ht 157.5 cm; Wt 98.2 kg
[2018-08-06 23:51] VITALS: TEMP 97.7
[2018-08-07] MEDS ORDERED: ZOFRAN ODT8 MG PO ×2 (00:03→02:05)
[2018-08-07] MEDS ORDERED: PRIL40 PO (00:28)
[2018-08-07] MEDS ORDERED: CONSTULOSE 20G/30ML (00:28)
[2018-08-07 00:37] LABS: EOS % 0.9 % (0-4.0); GRAN # 1.8 (1.4-6.5); GRAN % 82.4 % (42.2-75.2); HEMOGLOBIN 11.2 g/dl (12.5-16.0); LYMPH # 0.2 (1.2-3.4); MEAN CELL VOLUME 99 fl (80.0-100.0); MEAN CORPUSCULAR HEMOGLOBIN 34 pg (27.0-31.0); MEAN CORPUSCULAR HGB CONC 34 g/dl (33.0-37.0); MEAN PLATELET VOLUME 11.1 fl (7.4-10.4); MONO # 0.2 (0.1-0.6); MONO % 7.7 % (1.7-9.3); RED BLOOD COUNT 3.33 M/mm3 (4.10-5.30); REDCELL DISTRIBUTION WIDTH-CV 13.8 % (11.5-14.5)
[2018-08-07 00:51] LABS: HEMATOCRIT 32.9 % (37.0-47.0)
[2018-08-07 00:54] LABS: PLATELET COUNT 42 K/mm3 (130-400)
[2018-08-07 01:10] LABS: ALBUMIN 2.9 gm/dL (3.5-5.0); BILIRUBIN,TOTAL 2.9 mg/dL (0.0-1.0); CREATININE, serum 0.49 mg/dL (0.52-1.25); POTASSIUM 3.6 mmol/L (3.4-5.0); TOTAL PROTEIN 6.8 gm/dL (6.4-8.2)
[2018-08-07 01:40] LABS: COLLECTION METHOD CLEAN CATCH
[2018-08-07 01:53] LABS: MUCOUS Present /lpf; PH 7 (5-8); URINE APPEARANCE Clear; URINE BACTERIA None Seen /hpf; URINE BILIRUBIN Positive (NEGATIVE); URINE BLOOD Negative (NEGATIVE); URINE COLOR Amber; URINE GLUCOSE Negative (NEGATIVE); URINE KETONE Negative (NEGATIVE); URINE LEUKOCYTE ESTERASE Negative (NEGATIVE); URINE NITRATE Negative (NEGATIVE); URINE PROTEIN(semi-quant) Negative (NEGATIVE); URINE UROBILINOGEN >=4.0 mg/dL (NEGATIVE)
[2018-08-07 02:24] VITALS: BP 150/72; PULSE 93
== END 2018-08-07 02:24 | disposition home or self-care (01) ==
LOC: COL.ER 23:50
PROVIDERS: Emergency Medicine
DX: R11.2 Nausea with vomiting, unspecified (principal); I10 Essential (primary) hypertension; E78.5 Hyperlipidemia, unspecified; R19.7 Diarrhea, unspecified; Z90.49 Acquired absence of other specified parts of digestive tract; Z87.891 Personal history of nicotine dependence
CPT/HCPCS: J2405; J7030

== ENCOUNTER 2018-08-07 09:27 | Emergency (ER) | payer MEDICARE ==
[~2018-08-07] VITALS: Ht 157.5 cm; Wt 98.2 kg
[~2018-08-07 09:27] MED LIST changes: +CONSTULOSE 20G/30ML; +PRIL40 PO; +ZOFRAN ODT8 MG PO
[2018-08-07 09:28] VITALS: TEMP 97.1
[2018-08-07 10:18] LABS: COLLECTION METHOD CLEAN CATCH
[2018-08-07 10:34] LABS: HEMOGLOBIN 12.1 g/dl (12.5-16.0); MEAN CELL VOLUME 99 fl (80.0-100.0); MEAN CORPUSCULAR HEMOGLOBIN 34 pg (27.0-31.0); MEAN CORPUSCULAR HGB CONC 34 g/dl (33.0-37.0); MEAN PLATELET VOLUME 11.6 fl (7.4-10.4); RED BLOOD COUNT 3.58 M/mm3 (4.10-5.30); REDCELL DISTRIBUTION WIDTH-CV 13.9 % (11.5-14.5)
[2018-08-07 10:35] LABS: MUCOUS Present /lpf; PH 6 (5-8); URINE APPEARANCE Clear; URINE BACTERIA Rare /hpf; URINE BILIRUBIN Negative (NEGATIVE); URINE BLOOD 1+ (NEGATIVE); URINE COLOR Amber; URINE GLUCOSE Negative (NEGATIVE); URINE KETONE Trace (NEGATIVE); URINE LEUKOCYTE ESTERASE Negative (NEGATIVE); URINE NITRATE Negative (NEGATIVE); URINE PROTEIN(semi-quant) 1+ (NEGATIVE); URINE UROBILINOGEN >=4.0 mg/dL (NEGATIVE)
[2018-08-07 10:35] LABS: ALANINE AMINOTRANSFERASE 28 U/L (9-52); ALBUMIN 3.1 gm/dL (3.5-5.0); ALKALINE PHOSPHATASE 76 U/L (50-136); ANION GAP 7 mmol/L (7-16); AST,SGOT 42 U/L (15-37); BILIRUBIN,TOTAL 4.4 mg/dL (0.0-1.0); BLOOD UREA NITROGEN 17 mg/dL (7-17); CALCIUM 7.7 mg/dL (8.4-10.2); CARBON DIOXIDE 23 mmol/L (22-30); CHLORIDE 110 mmol/L (98-107); CREATININE, serum 0.45 mg/dL (0.52-1.25); GLUCOSE 110 mg/dL (74-106); LIPASE 96 U/L (23-300); POTASSIUM 3.9 mmol/L (3.4-5.0); SODIUM 139 mmol/L (137-145)
[2018-08-07 10:36] LABS: HEMATOCRIT 35.3 % (37.0-47.0)
[2018-08-07 10:37] LABS: PLATELET COUNT 47 K/mm3 (130-400)
[2018-08-07 10:38] LABS: C-REACTIVE PROTEIN < 0.5 mg/dL (0.0-0.9)
[2018-08-07 11:06] LABS: BAND 5 % (0-10); LYMPHOCYTE 1 % (20.0-51.0); NEUTROPHILS 94 % (42.0-75.2); PLATELET ESTIMATE DECREASED (NORMAL)
[2018-08-07 14:41] VITALS: BP 129/87; PULSE 97
== END 2018-08-07 14:55 | disposition short-term general hospital (02) ==
LOC: COL.ER 09:27
PROVIDERS: Family Medicine
DX: K52.9 Noninfective gastroenteritis and colitis, unspecified (principal); E86.9 Volume depletion, unspecified; I10 Essential (primary) hypertension; E78.5 Hyperlipidemia, unspecified; E86.0 Dehydration; F17.210 Nicotine dependence, cigarettes, uncomplicated; Z90.49 Acquired absence of other specified parts of digestive tract
CPT/HCPCS: J2405; J2550; J7030

== ENCOUNTER 2018-10-17 09:40 | Emergency (ER) | payer MEDICARE ==
[~2018-10-17] VITALS: Ht 157.5 cm; Wt 102.7 kg
[2018-10-17 09:47] VITALS: TEMP 98.1
[2018-10-17] MEDS ORDERED: DOXYCYCLINE HY100 MG PO ×2 (10:31)
[2018-10-17] MEDS ORDERED: TESSALON PERLE200 MG PO (10:31)
[2018-10-17] MEDS ORDERED: ZITHROMAX Z PA250 MG PO (11:21)
[2018-10-17 11:56] VITALS: BP 109/73; PULSE 78
== END 2018-10-17 11:58 | disposition home or self-care (01) ==
LOC: COL.ER 09:40
DX: J01.90 Acute sinusitis, unspecified (principal); J20.9 Acute bronchitis, unspecified; J02.9 Acute pharyngitis, unspecified; K21.9 Gastro-esophageal reflux disease without esophagitis; B19.20 Unspecified viral hepatitis C without hepatic coma; Z88.6 Allergy status to analgesic agent; Z90.49 Acquired absence of other specified parts of digestive tract; Z87.891 Personal history of nicotine dependence
CPT/HCPCS: J1885

== ENCOUNTER 2018-11-01 17:18 | Emergency (ER) | payer MEDICARE ==
[~2018-11-01] VITALS: Ht 157.5 cm; Wt 102.7 kg
[~2018-11-01 17:18] MED LIST changes: +DOXYCYCLINE HY100 MG PO; +TESSALON PERLE200 MG PO; +ZITHROMAX Z PA250 MG PO
[2018-11-01 17:29] VITALS: TEMP 99
[2018-11-01 18:18] LABS: HEMOGLOBIN 10.9 g/dl (12.5-16.0); MEAN CELL VOLUME 99 fl (80.0-100.0); MEAN CORPUSCULAR HEMOGLOBIN 33 pg (27.0-31.0); MEAN CORPUSCULAR HGB CONC 33 g/dl (33.0-37.0); MEAN PLATELET VOLUME 11.9 fl (7.4-10.4); RED BLOOD COUNT 3.34 M/mm3 (4.10-5.30); REDCELL DISTRIBUTION WIDTH-CV 13.8 % (11.5-14.5)
[2018-11-01 18:26] LABS: HEMATOCRIT 32.9 % (37.0-47.0); PLATELET COUNT 34 K/mm3 (130-400)
[2018-11-01 18:37] LABS: BILIRUBIN,TOTAL 1.5 mg/dL (0.0-1.0); C-REACTIVE PROTEIN 0.6 mg/dL (0.0-0.9); CALCIUM 8.6 mg/dL (8.4-10.2); CREATININE, serum 0.5 (0.52-1.25); POTASSIUM 4.1 mmol/L (3.4-5.0)
[2018-11-01 19:04] LABS: LYMPHOCYTE 24 % (20.0-51.0); NEUTROPHILS 74 % (42.0-75.2); PLATELET ESTIMATE DECREASED (NORMAL)
[2018-11-01 19:17] LABS: COLLECTION METHOD CLEAN CATCH
[2018-11-01 19:22] LABS: MUCOUS Present /lpf; PH 7 (5-8); URINE APPEARANCE Clear; URINE BACTERIA Rare /hpf; URINE BILIRUBIN Negative (NEGATIVE); URINE BLOOD Negative (NEGATIVE); URINE COLOR Yellow; URINE GLUCOSE Negative (NEGATIVE); URINE KETONE Negative (NEGATIVE); URINE LEUKOCYTE ESTERASE Negative (NEGATIVE); URINE NITRATE Negative (NEGATIVE); URINE PROTEIN(semi-quant) Negative (NEGATIVE); URINE RBC 0-2 /hpf; URINE UROBILINOGEN >=4.0 mg/dL (NEGATIVE)
[2018-11-01 19:51] VITALS: BP 161/74; PULSE 81
--- NOTE | 2018-11-02 10:11 | NUR ---
runner worker called patient, however, voice mail is not set up. Will attempt call again later.
--- NOTE | 2018-11-02 15:31 | NUR ---
Social spoke with patient and her daughter, Megan, and arranged for them to Call [facility] on Monday morning to make an appointment to receive assistance to get trailer air conditioning unit repaired. Megan verbalizes understanding and writes down the information they will need to bring with them to the appointment. Megan verbalizes understanding to obtain a free quote from company(s) on the cost to repair the air conditioning unit, and take that to their appointment. Megan also states that she has a sister in law/brother in [place] and she will inquire if they can stay there a few days. Patient states her father/uncle purchased the trailer and the unit is very old and they cannot afford to repair it.
== END 2018-11-01 19:51 | disposition home or self-care (01) ==
LOC: COL.ER 17:18
PROVIDERS: Physician Assistant
DX: R60.9 Edema, unspecified (principal); J45.909 Unspecified asthma, uncomplicated; Z86.19 Personal history of other infectious and parasitic diseases

== ENCOUNTER 2018-11-21 17:10 | Inpatient (IN) | payer MEDICARE, OTHER ==
[~2018-11-21] VITALS: Ht 154.9 cm; Wt 106.7 kg
[2018-11-21 19:35] LABS: COLLECTION METHOD CATHETER
[2018-11-21 19:39] LABS: BASO % 0.2 % (0.0-2.0); GRAN # 3.6 (1.4-6.5); GRAN % 87.1 % (42.2-75.2); HEMOGLOBIN 12.3 g/dl (12.5-16.0); LYMPH # 0.2 (1.2-3.4); LYMPH % 3.6 % (20.0-51.0); MEAN CELL VOLUME 98 fl (80.0-100.0); MEAN CORPUSCULAR HEMOGLOBIN 33 pg (27.0-31.0); MEAN CORPUSCULAR HGB CONC 34 g/dl (33.0-37.0); MEAN PLATELET VOLUME 12.5 fl (7.4-10.4); MONO # 0.4 (0.1-0.6); MONO % 8.9 % (1.7-9.3); RED BLOOD COUNT 3.73 M/mm3 (4.10-5.30); REDCELL DISTRIBUTION WIDTH-CV 14.1 % (11.5-14.5)
[2018-11-21 19:46] LABS: HEMATOCRIT 36.6 % (37.0-47.0); PLATELET COUNT 37 K/mm3 (130-400)
[2018-11-21 19:51] LABS: ALBUMIN 3.4 gm/dL (3.5-5.0); BILIRUBIN,TOTAL 3.3 mg/dL (0.0-1.0); C-REACTIVE PROTEIN 0.8 mg/dL (0.0-0.9); CALCIUM 8.2 mg/dL (8.4-10.2); CREATININE, serum 0.47 (0.52-1.25); POTASSIUM 3.7 mmol/L (3.4-5.0); TOTAL PROTEIN 7.9 gm/dL (6.4-8.2)
[2018-11-21 20:12] LABS: MUCOUS Present /lpf; PH 7 (5-8); SQUAMOUS EPITHELIAL 0-2 /hpf; URINE APPEARANCE Clear; URINE BACTERIA None Seen /hpf; URINE BILIRUBIN Negative (NEGATIVE); URINE BLOOD 2+ (NEGATIVE); URINE COLOR Yellow; URINE GLUCOSE Negative (NEGATIVE); URINE KETONE Negative (NEGATIVE); URINE LEUKOCYTE ESTERASE Negative (NEGATIVE); URINE NITRATE Negative (NEGATIVE); URINE PROTEIN(semi-quant) Negative (NEGATIVE); URINE UROBILINOGEN >=4.0 mg/dL (NEGATIVE)
[2018-11-22] VITALS (7 sets, daily range): BP systolic 102–136; BP diastolic 48–77; PULSE 76–97; TEMP 97.7–100.5
--- NOTE | 2018-11-22 00:39 | NUR ---
PT A/O X4, IN BED WITH HOB ELEVATED TO 45 DEGREE ANGLE. PT ADVISES THAT SHE HAS NO PAIN AND FEELS MUCH BETTER NOW. NO NEEDS, CALL LIGHT WITHIN REACH. CAME FROM ER VIA WHEELCHAIR AND AMBULATED TO BED, GAIT STEADY.
--- NOTE | 2018-11-22 02:19 | NUR ---
PT SLEEPING/RESTING WITH NO S/S OF PAIN OR DISCOMFORT NOTED. CALL LIGHT WITHIN REACH..
[2018-11-22 02:24] LABS: INR 1.7 (0.8-3.0); PROTHROMBIN TIME 19.7 SECONDS (9.7-12.8)
--- NOTE | 2018-11-22 07:03 | NUR ---
UNEVENTFUL NIGHT, GAVE PT JELLO, CHICKEN BROTH, AND WATER. AFTER PT HAD EATEN, PT HAD WENT TO SLEEP AND AND BEEN SLEEPING/RESTING SINCE THEN, CALL LIGHT WITHIN REACH.
--- NOTE | 2018-11-22 07:06 | NUR ---
Patient is awake and alert in room. Paused IV fluids for blood draw as left arm is restricted. States she is feeling well this morning. SCDs are not in place as reported she refuses them. Would like to see physician as she is not happy with her clear liquid diet. Respirations are even and non-labored. Is denying any pain. Personal items and call light are within reach.
[2018-11-22 07:31] LABS: BASO % 0.3 % (0.0-2.0); EOS % 0.3 % (0-4.0); GRAN # 2.9 (1.4-6.5); GRAN % 86.9 % (42.2-75.2); HEMATOCRIT 37.1 % (37.0-47.0); HEMOGLOBIN 12.8 g/dl (12.5-16.0); LYMPH # 0.2 (1.2-3.4); LYMPH % 5.2 % (20.0-51.0); MEAN CELL VOLUME 96 fl (80.0-100.0); MEAN CORPUSCULAR HEMOGLOBIN 33 pg (27.0-31.0); MEAN CORPUSCULAR HGB CONC 35 g/dl (33.0-37.0); MEAN PLATELET VOLUME 12.1 fl (7.4-10.4); MONO # 0.2 (0.1-0.6); MONO % 6.4 % (1.7-9.3); RED BLOOD COUNT 3.86 M/mm3 (4.10-5.30); REDCELL DISTRIBUTION WIDTH-CV 14.3 % (11.5-14.5)
[2018-11-22 07:37] LABS: ALBUMIN 3.1 gm/dL (3.5-5.0); CALCIUM 7.8 mg/dL (8.4-10.2); CREATININE, serum 0.48 (0.52-1.25); POTASSIUM 3.7 mmol/L (3.4-5.0); TOTAL PROTEIN 7.4 gm/dL (6.4-8.2)
[2018-11-22 07:45] LABS: PLATELET COUNT 22 K/mm3 (130-400)
--- NOTE | 2018-11-22 14:46 | NUR ---
SW attended clinical rounds to discuss discharge planning. Patient lives at home with her two daughters, her son in law, and 2 yr old grandson. Patient's PCP is Camille Swenson at the [facility] and he preferred pharmacy is [facility]. Patient has a walker at home but does not require it for ambulation. Patient does not have any home health services and she does have a DPOA in the EMR. Patient voiced concerns returning home because she does not have air conditioning in the trailer. BABITA is aware of this and patient was previously seen by Camille (BABITA) on 11/02 in the ED about this issue. Patient and daughter, Megan, were advised to speak with [facility] [employer]. Patient reports she did not go to [employer] nor did her daughter. SW reported she will contact patient's daughter about this. SW will continue to follow. BABITA attempted to contact patient's daughter, Megan, twice but her voicemail has not been set up and BABITA was unable to leave a message.
--- NOTE | 2018-11-22 18:14 | NUR ---
Patient has port access and stated she hasnt had it accessed or flushed for a long time. Received instruction to access port and can utilize port while accessed. IV removed from left AC as noted in documentation. Patient was pleased to have port accessed and functioning appropriately. Denies having any pain or chills. Was encouraged earlier in the shift to bathe but declined. Personal items and call light are within reach.
--- NOTE | 2018-11-22 19:31 | NUR ---
pt had an incontinent void- bedding changed, robina care provided, gown changed. no needs at this time. call light in reach
--- NOTE | 2018-11-22 21:50 | NUR ---
PT RESTING IN BED WATCHING TV/ A+OX4. REPORTS PAIN 3/10 IN HEAD. PORTACATH FLUSHES WELL, BLOOD RETURN NOTED-IV FLUIDS RUNNING AT ORDERED RATE. SHIFT ASSESSMENT COMPLETE. DRY ROLLER HELPED PT SHOWER. NO NEEDS AT THIS TIEM.C ALL LIGHT IN REACH .
--- NOTE | 2018-11-23 02:49 | NUR ---
PT SLEEPING IN BED AT THIS TIME. IV FLUIDS RUNNING AT ORDERED RATE. NO NEEDS, CALL LIGHT IN REACH
[2018-11-23 03:28] VITALS: BP 122/85; PULSE 65; TEMP 99.1
--- NOTE | 2018-11-23 05:14 | NUR ---
PT HAD AN UNEVENTFUL NIGHT. REPORTED A VALENZUELA AT THE BEGINNING OF THE NIGHT- MOTRIN DECREASED PAIN IN HEAD. PORT-A-CATH FLUSHES WELL, BLOOD RETURN NOTED. PT WALKED TO BR DURING THE NIGHT. NO INCONTINENCE DURING NIGHT. CALL LIGHT IN REACH . NO NEEDS A THIS TIME
[2018-11-23 06:48] LABS: MEAN CELL VOLUME 97 fl (80.0-100.0); MEAN CORPUSCULAR HGB CONC 34 g/dl (33.0-37.0); MEAN PLATELET VOLUME 13.3 fl (7.4-10.4); RED BLOOD COUNT 3.13 M/mm3 (4.10-5.30); REDCELL DISTRIBUTION WIDTH-CV 14.4 % (11.5-14.5)
[2018-11-23 07:03] LABS: ALBUMIN 2.3 gm/dL (3.5-5.0); BILIRUBIN,TOTAL 2.3 mg/dL (0.0-1.0); CALCIUM 7.4 mg/dL (8.4-10.2); CREATININE, serum 0.46 (0.52-1.25); POTASSIUM 3.6 mmol/L (3.4-5.0); TOTAL PROTEIN 5.9 gm/dL (6.4-8.2)
--- NOTE | 2018-11-23 07:06 | NUR ---
REPORT GIVEN TO QUEENIE CHERRY. PT SLEEPING
[2018-11-23 07:25] LABS: HEMATOCRIT 30.2 % (37.0-47.0); HEMOGLOBIN 10.2 g/dl (12.5-16.0); MEAN CORPUSCULAR HEMOGLOBIN 33 pg (27.0-31.0); PLATELET COUNT 23 K/mm3 (130-400)
[2018-11-23 07:33] LABS: BAND 44 % (0-10); EOSINOPHIL 2 % (0-4); LYMPHOCYTE 9 % (20.0-51.0); NEUTROPHILS 31 % (42.0-75.2); PLATELET ESTIMATE DECREASED (NORMAL)
[2018-11-23 07:34] LABS: HYPOCHROMIA 1+
[2018-11-23 08:04] VITALS: BP 104/53; PULSE 77; TEMP 97.7
--- NOTE | 2018-11-23 09:08 | NUR ---
BABITA spoke with patient's daughter, Megan ([phone]) about patient's trailer not having A/C. Megan reports that she was given a window air condiditoner and they are installing it today. BABITA [facility] if patient [facility], per Camille JC, recommendations earlier this month. Megan reports she did not go there because the weather wasn't as hot outside. Megan reports [facility] on Monday since she is out of town today.
[2018-11-23 11:21] VITALS: BP 116/58; PULSE 73; TEMP 98.2
--- NOTE | 2018-11-23 11:21 | NUR ---
Initial visit; Patient thanked Instructional Leader for looking in on her and offering God's blessings.
[2018-11-23 16:08] VITALS: BP 128/50; PULSE 71; TEMP 97.7
--- NOTE | 2018-11-23 18:27 | NUR ---
Patient is resting in bed watching TV, denies pain. Call light and personal belongings are within reach.
[2018-11-23 19:36] VITALS: BP 133/69; PULSE 73; TEMP 98.2
--- NOTE | 2018-11-23 21:30 | NUR ---
PT RESTING IN BED A+OX4. REPORTS NO PAIN. PORTACATH FLUSHES WELL, BLOOD RETURN NOTED. SLIGHT EDEMA NOTED IN BILATERAL LEGS. LUNGS CLEAR. PT REPORTS BM. NO NEEDS AT THIS TIME CALL LIGHT IN REACH
[2018-11-23 23:12] VITALS: BP 140/66; PULSE 74; TEMP 97.9
[2018-11-24 03:40] VITALS: BP 151/72; PULSE 73; TEMP 98.2
--- NOTE | 2018-11-24 05:26 | NUR ---
PT HAD AN UNEVENTFUL NIGHT. REPORTED A VALENZUELA PRN MOTRIN GIVEN. REPORTED RELIEF FROM PAIN. PORT-A-CATH FLUSHES WITH BLOOD RETURN NOTED. SLEPT DURING NIGHT. ONE BM DURING LINE DIRECTOR. REPORTS FEELING BETTER. NO NEEDS AT THIS TIEM. CALL LIGHT IN REACH
--- NOTE | 2018-11-24 05:44 | NUR ---
PT REPORTS "I WONDER IF THE TRAILER I AM LIVING IN GOT ME SICK, IT IS LIKE 120 DEGREES IN THERE. 2 BEDROOM WITH 5 PPL AND A BABY. IT IS HOTTER IN THE TRAILER THAN OUTSIDE. I AM NOT GOING BACK THERE EVEN IF IT MAKES MY DAUGHTER MAD. I WILL JUST GO TO THE POLICE STATION AND TELL THEM TO FIND ME A PLACE TO STAY."
[2018-11-24 05:57] LABS: HEMOGLOBIN 10.1 g/dl (12.5-16.0); MEAN CELL VOLUME 98 fl (80.0-100.0); MEAN CORPUSCULAR HEMOGLOBIN 33 pg (27.0-31.0); MEAN CORPUSCULAR HGB CONC 33 g/dl (33.0-37.0); MEAN PLATELET VOLUME 13.6 fl (7.4-10.4); REDCELL DISTRIBUTION WIDTH-CV 14.8 % (11.5-14.5)
[2018-11-24 06:01] LABS: HEMATOCRIT 30.3 % (37.0-47.0)
[2018-11-24 06:02] LABS: PLATELET COUNT 28 K/mm3 (130-400)
[2018-11-24 06:05] LABS: ALBUMIN 2.3 gm/dL (3.5-5.0); BILIRUBIN,TOTAL 1.9 mg/dL (0.0-1.0); CALCIUM 7.6 mg/dL (8.4-10.2); CREATININE, serum 0.36 (0.52-1.25); POTASSIUM 3.7 mmol/L (3.4-5.0); TOTAL PROTEIN 6.1 gm/dL (6.4-8.2)
--- NOTE | 2018-11-24 07:11 | NUR ---
report given to QUEENIE Daniel. pt reports no needs
--- NOTE | 2018-11-24 07:15 | NUR ---
Received report from QUEENIE Isabel
[2018-11-24 07:21] LABS: BAND 26 % (0-10); EOSINOPHIL 2 % (0-4); LYMPHOCYTE 20 % (20.0-51.0); NEUTROPHILS 42 % (42.0-75.2)
[2018-11-24 07:23] LABS: PLATELET ESTIMATE DECREASED (NORMAL)
[2018-11-24 07:53] VITALS: BP 142/82; PULSE 79; TEMP 97.9
[2018-11-24] MEDS ORDERED: OMNICEF 300MG300 MG PO (09:39)
--- NOTE | 2018-11-24 09:41 | NUR ---
Pt napping upon entry to room, easily awakened, shift assessment complete, left Pt call light in reach, bed in lowest position.
--- NOTE | 2018-11-24 14:07 | NUR ---
Pt discharged to home, discharge packet discussed with Pt, [facility], Pt transported by private auto.
--- NOTE | 2018-11-26 14:03 | NUR ---
acid conditioning worker left Megan a message that she can get in touch with [employer] about continued efforts to get their air conditioning home unit repaired through Monika Richter Mother's financial assistance. Worker advised that [facility] is only open on Monday of this week, due to the holiday.
== END 2018-11-24 14:09 | disposition home or self-care (01) | DRG 872 ==
LOC: COL.ER 17:10 → MEDICAL 21:06
PROVIDERS: Emergency Medicine; Nurse Practitioner Family; ADMIT Hospitalist
DX: A41.89 Other specified sepsis (principal); N39.0 Urinary tract infection, site not specified; D61.818 Other pancytopenia; B96.1 Klebsiella pneumoniae [K. pneumoniae] as the cause of diseases classified elsewhere; R07.81 Pleurodynia; K74.69 Other cirrhosis of liver; B19.20 Unspecified viral hepatitis C without hepatic coma; Z66 Do not resuscitate; I10 Essential (primary) hypertension; E78.5 Hyperlipidemia, unspecified; Z85.3 Personal history of malignant neoplasm of breast; Z87.891 Personal history of nicotine dependence; Z88.6 Allergy status to analgesic agent
CPT/HCPCS: 99222-AI; 99231-AI; 99239; A4216; J0696; J2405; J7030

== ENCOUNTER 2019-02-20 22:42 | Observation (INO) | payer MEDICARE ==
[~2019-02-20] VITALS: Ht 154.9 cm; Wt 101.4 kg
[2019-02-20 23:47] LABS: EOS % 1.3 % (0-4.0); GRAN # 1.8 (1.4-6.5); GRAN % 75.1 % (42.2-75.2); HEMOGLOBIN 11.7 g/dl (12.5-16.0); LYMPH # 0.4 (1.2-3.4); MEAN CELL VOLUME 99 fl (80.0-100.0); MEAN CORPUSCULAR HEMOGLOBIN 34 pg (27.0-31.0); MEAN CORPUSCULAR HGB CONC 34 g/dl (33.0-37.0); MEAN PLATELET VOLUME 11.1 fl (7.4-10.4); MONO # 0.2 (0.1-0.6); MONO % 7.7 % (1.7-9.3); RED BLOOD COUNT 3.48 M/mm3 (4.10-5.30); REDCELL DISTRIBUTION WIDTH-CV 14.4 % (11.5-14.5)
[2019-02-20 23:48] LABS: ALBUMIN 3.2 gm/dL (3.5-5.0); BILIRUBIN,TOTAL 3.5 mg/dL (0.0-1.0); C-REACTIVE PROTEIN 0.7 mg/dL (0.0-0.9); CALCIUM 8.2 mg/dL (8.4-10.2); CREATININE, serum 0.43 (0.52-1.25); POTASSIUM 3.6 mmol/L (3.4-5.0); TOTAL PROTEIN 7.2 gm/dL (6.4-8.2)
[2019-02-20 23:49] LABS: HEMATOCRIT 34.5 % (37.0-47.0)
[2019-02-20 23:50] LABS: COLLECTION METHOD CATHETER
[2019-02-20 23:57] LABS: PLATELET COUNT 38 K/mm3 (130-400)
[2019-02-20 23:59] LABS: MUCOUS Present /lpf; PH 6 (5-8); URINE APPEARANCE Clear; URINE BACTERIA Rare /hpf; URINE BILIRUBIN Negative (NEGATIVE); URINE BLOOD Negative (NEGATIVE); URINE CALCIUM OXALATE CRYSTAL Present /hpf; URINE COLOR Yellow; URINE GLUCOSE Negative (NEGATIVE); URINE KETONE Negative (NEGATIVE); URINE LEUKOCYTE ESTERASE Trace (NEGATIVE); URINE NITRATE Positive (NEGATIVE); URINE PROTEIN(semi-quant) Negative (NEGATIVE); URINE UROBILINOGEN >=4.0 mg/dL (NEGATIVE)
--- NOTE | 2019-02-21 05:11 | NUR ---
Patient arrived to medical unit from ER at this time.
[2019-02-21] MEDS ORDERED: MOTRIN 200200 MG/TAB PO (05:13)
[2019-02-21 05:39] VITALS: BP 148/68; PULSE 111; TEMP 99.5
--- NOTE | 2019-02-21 06:00 | NUR ---
Patient assessed. Denies having pain and discomfort at this time. Alert and oriented x 4. LR running at 75 ml/hr to peripheral IV to right AC. Site is without redness, warmth, swelling, and pain. LS CTA in upper lobes, diminished in lower lobes. HR tachy. Capillary refill less than 3 seconds. Non-tenting skin turgor. BSAx4. Abdomen soft, nontender at this time, but reports it was tender earlier. Does complain of burning, frequency, and pain with urination. Has been incontinent. 1+ edema BLE. Voices no questions, needs, or concerns at this time. States she has been awake for a long time, and just wants to get some sleep. Resting in bed with call light within reach.
[2019-02-21 07:50] VITALS: BP 144/63; PULSE 115; TEMP 98.4
--- NOTE | 2019-02-21 10:06 | NUR ---
Reported on to primary nurse Deirdre. Siena Pierre RN Student
--- NOTE | 2019-02-21 11:05 | NUR ---
First visit from the radio frequency engineer. No needs right now.
--- NOTE | 2019-02-21 11:38 | NUR ---
Pt resting in bed. Pt alert and oriented. Pt drowsy this am. Pt reports right pinky toe hurts. Toenail has a white thick toenail but no surrounding redness or inflammation noted. Pt IV patent no redness or infiltration. Pt rates pain 2/10 in toe only. Pt denies SOB. Pt eating and drinking ok this am.
[2019-02-21 12:23] LABS: BASO % 0.3 % (0.0-2.0); GRAN # 6.3 (1.4-6.5); GRAN % 87.9 % (42.2-75.2); HEMOGLOBIN 11.1 g/dl (12.5-16.0); LYMPH # 0.3 (1.2-3.4); LYMPH % 4.5 % (20.0-51.0); MEAN CELL VOLUME 99 fl (80.0-100.0); MEAN CORPUSCULAR HEMOGLOBIN 34 pg (27.0-31.0); MEAN CORPUSCULAR HGB CONC 34 g/dl (33.0-37.0); MEAN PLATELET VOLUME 12.1 fl (7.4-10.4); MONO # 0.5 (0.1-0.6); MONO % 6.9 % (1.7-9.3); REDCELL DISTRIBUTION WIDTH-CV 14.5 % (11.5-14.5)
[2019-02-21 12:25] VITALS: BP 140/64; PULSE 101; TEMP 98.6
[2019-02-21 12:25] LABS: HEMATOCRIT 32.6 % (37.0-47.0)
[2019-02-21 12:26] LABS: PLATELET COUNT 30 K/mm3 (130-400)
[2019-02-21 12:33] LABS: CALCIUM 7.9 mg/dL (8.4-10.2); CREATININE, serum 0.49 (0.52-1.25); POTASSIUM 3.6 mmol/L (3.4-5.0)
--- NOTE | 2019-02-21 13:34 | NUR ---
SW met with the patient to discuss discharge plan. The patient lives in [place] with her cousin, Nicole Das, and Nicole's . She states that she is staying with them until she can get approved for HUD Housing in [place]. She reports independence with ADLs and states that she has access to a walker, if needed. The patient primary care provider is CHADWICK Lockwood at [facility] in [place] she states that she receives her medications at wherever is cheapest. She states that she has a [employer] card and that she would like to utilize the [facility]. The patient's advanced directives are in EMR. Her DPOA-HC is her daughter June Das (ph#[phone]) and Martin Das (ph#[phone]). The patient plans to return back to her cousin's home upon discharge. The patient will need her medications priced prior to discharge. SW to continue to follow.
--- NOTE | 2019-02-21 13:52 | NUR ---
Primary nurse was assisted with [id number] patient care by [employer] [employer] student Siena Pierre and [employer] [employer] instructor Lisbeth Napoles RN-.
--- NOTE | 2019-02-21 13:55 | NUR ---
Reported off to primary nurse Deirdre JEROME. Patient resting in bed and call light within reach. Siena RN student
[2019-02-21 15:24] VITALS: BP 119/47; PULSE 102; TEMP 99
--- NOTE | 2019-02-21 18:19 | NUR ---
Pt stable this shift. Pt alert and oriented but drowsy most of the day and easily arousable. Pt IV patent no redness or infiltration. Pt denies pain now but asked about Ibuprofen this afternoon if can have later if needed. This nurse updated Lucie BUILDING SERVICES COORDINATOR of request and she stated she would look into it. Pt has Tylenol ordered but pt states she was told not to take it by her doctor d/t liver issues. Pt has call light in reach.
[2019-02-21 19:10] VITALS: BP 130/54; PULSE 102; TEMP 100
--- NOTE | 2019-02-21 20:45 | NUR ---
Patient assessed at this time. Alert and oriented x 4, and able to make needs known. Reported pain and discomfort to low back/flank area. Does not want to take any APAP. Agreed to try PRN Pehnazopyridine. Patient has been very drowsy, sleeping most of day. Held scheduled Melatonin. Peripheral IV to right AC flushed. Site is without redness, warmth, swelling, and pain. LS CTA. Respirations are even and unlabored. HRR. Capillary refill less than 3 seconds. Non-tenting skin turgor. BSAx4. Abdomen soft and non-tender. No edema noted. Resting in bed with call light within reach. Voices no questions, needs, or concerns at this time.
[2019-02-21 22:56] VITALS: BP 130/56; PULSE 90; TEMP 98.8
[2019-02-22 03:26] VITALS: BP 126/67; PULSE 88; TEMP 98.6
--- NOTE | 2019-02-22 04:57 | NUR ---
Patient has been resting in bed with eyes closed. Has denied having pain and discomfort. Continues to be drowsy, but awakens easily. Has called for assistance with toileting twice during the night. Voices no questions, needs, or concerns at this time. Resting in bed with call light within reach. No furhter complaints of pain or discomfort since given PRN Phenazopyridine.
[2019-02-22 06:52] LABS: BASO % 0.2 % (0.0-2.0); EOS % 0.5 % (0-4.0); GRAN # 3.6 (1.4-6.5); GRAN % 81.6 % (42.2-75.2); HEMOGLOBIN 10.7 g/dl (12.5-16.0); LYMPH # 0.3 (1.2-3.4); LYMPH % 7.4 % (20.0-51.0); MEAN CELL VOLUME 101 fl (80.0-100.0); MEAN CORPUSCULAR HEMOGLOBIN 34 pg (27.0-31.0); MEAN CORPUSCULAR HGB CONC 34 g/dl (33.0-37.0); MEAN PLATELET VOLUME 12.4 fl (7.4-10.4); MONO # 0.5 (0.1-0.6); MONO % 10.1 % (1.7-9.3); RED BLOOD COUNT 3.17 M/mm3 (4.10-5.30); REDCELL DISTRIBUTION WIDTH-CV 14.6 % (11.5-14.5)
[2019-02-22 07:01] LABS: HEMATOCRIT 31.9 % (37.0-47.0)
[2019-02-22 07:02] LABS: PLATELET COUNT 31 K/mm3 (130-400)
[2019-02-22 07:16] LABS: ALBUMIN 2.6 gm/dL (3.5-5.0); BILIRUBIN,TOTAL 5.1 mg/dL (0.0-1.0); CREATININE, serum 0.47 (0.52-1.25); POTASSIUM 3.6 mmol/L (3.4-5.0); TOTAL PROTEIN 6.1 gm/dL (6.4-8.2)
[2019-02-22 07:19] VITALS: BP 131/51; PULSE 87; TEMP 98.6
--- NOTE | 2019-02-22 08:00 | NUR ---
UPON ENTRY TO THE ROOM PATIENT IS RESTING IN BED. PATIENT IS DROWSY BUT AROUSES EASILY TO NAME. PATIENT IS A&OX4. VSS. BOWEL SOUNDS ACTIVE ALL FOUR QUADRANTS. PATIENT TOLERATING DIET WITHOUT ANY COMPLAINTS OF N/V. POSITIVE PEDAL PULSES EQUAL BILATERALLY. SCD'S TO BLE. RIGHT AC TO INT. CALL LIGHT WITHIN REACH. FAMILY PRESENT AT THE BEDSIDE. PATIENT DENIES ANY NEEDS AT THIS TIME.
--- NOTE | 2019-02-22 08:30 | NUR ---
Reported on to primary nurse Jenae JEROME. Siena Pierre RN Student
--- NOTE | 2019-02-22 10:50 | NUR ---
SW attended clinical rounds. The patient is to tentatively discharge back home tomorrow, 02/23, when cultures are final. SW to continue to follow to assist with pricing meds.
[2019-02-22 11:51] VITALS: BP 154/87; PULSE 94; TEMP 99.4
--- NOTE | 2019-02-22 11:55 | NUR ---
BABITA attended clinical rounds. The patient's parents at bedside. The patient is going to be prescribed Lovenox injections upon discharge. The patient reports that she is unsure if she will be able to administer the injections on her own. The clinical team discussed the option of going into [facility] for the injections and to also be established there for primary care. The patient and her parent's were in agreeance to this plan. The patient's nurse is to also provide the patient with education/teaching on the injection. The patient and patient's parents report that after the teachings, the patient may be more comfortable and feel confident adminstering the injections on her own. BABITA contacted Raymond at [facility] and established the patient with PCP Dr. Luis Eduardo Chavez and secured the patient an appointment for Monday, 03/01, at 1415. The patient is also set up to go to [facility]'s lab on Monday, 02/25, to check her INR. BABITA informed the patient and her parents of this. They were all in agreeance to this. BABITA updated the patient's nurse practitioner, Daxa, and the sr community manager of the appointment. BABITA faxed the patient's records to [facility]. BABITA will need to fax the patient's discharge orders to [facility] prior to discharge. [facility] .
--- NOTE | 2019-02-22 13:49 | NUR ---
Reported off to primary nurse Jenae. Patient resting in bed and call light within reach. Siena Pierre Student RN
--- NOTE | 2019-02-22 13:51 | NUR ---
Primary nurse was assisted with [id number] patient care by [facility] [employer] Siena Pierre and [employer] [employer] [employer] instructor Lisbeth Napoles RN-.
[2019-02-22 16:16] VITALS: BP 107/45; PULSE 91; TEMP 99.1
--- NOTE | 2019-02-22 19:29 | NUR ---
REPORT GIVEN TO QUEENIE RAINES.
[2019-02-22 19:40] VITALS: BP 127/58; PULSE 90; TEMP 98.8
--- NOTE | 2019-02-22 20:00 | NUR ---
Patient assessed at this time. Alert and oriented, and able to make needs known. Denies having pain and discomfort. Peripheral IV flushed to right AC. Site is without redness, warmth, swelling, and pain. Denies having SOB and dyspnea. LS CTA. Respirations even and unlabored. HRR. Capillary refill less than 3 seconds. Non-tenting skin turgor. BSAx4. Abdomen soft and non-tender. Voices no questions, needs, or concerns at this time. Resting in bed watching TV at this time. Call light is within reach.
[2019-02-22 23:15] VITALS: BP 125/60; PULSE 71; TEMP 97.9
[2019-02-23 03:39] VITALS: BP 125/85; PULSE 80; TEMP 97.9
--- NOTE | 2019-02-23 05:36 | NUR ---
Patient has denied having pain and discomfort. Has voiced no questions, needs, or concerns this shift. Has been incontinent of bladder. Staff provides incontinent cares. Resting in bed with call light within reach.
[2019-02-23 06:26] LABS: HEMOGLOBIN 10.8 g/dl (12.5-16.0); MEAN CELL VOLUME 100 fl (80.0-100.0); MEAN CORPUSCULAR HEMOGLOBIN 34 pg (27.0-31.0); MEAN CORPUSCULAR HGB CONC 34 g/dl (33.0-37.0); MEAN PLATELET VOLUME 12.6 fl (7.4-10.4); RED BLOOD COUNT 3.18 M/mm3 (4.10-5.30); REDCELL DISTRIBUTION WIDTH-CV 14.8 % (11.5-14.5)
[2019-02-23 06:47] LABS: ALBUMIN 2.6 gm/dL (3.5-5.0); BILIRUBIN,TOTAL 2.9 mg/dL (0.0-1.0); CALCIUM 8.4 mg/dL (8.4-10.2); CREATININE, serum 0.45 (0.52-1.25); POTASSIUM 3.7 mmol/L (3.4-5.0); TOTAL PROTEIN 6.1 gm/dL (6.4-8.2)
--- NOTE | 2019-02-23 07:17 | NUR ---
Report given to first shift nurse.
[2019-02-23 07:31] LABS: HEMATOCRIT 31.9 % (37.0-47.0)
[2019-02-23 07:32] LABS: PLATELET COUNT 32 K/mm3 (130-400)
[2019-02-23 07:34] VITALS: BP 136/75; PULSE 77; TEMP 97.3
[2019-02-23 08:13] LABS: BAND 7 % (0-10); EOSINOPHIL 2 % (0-4); LYMPHOCYTE 11 % (20.0-51.0); NEUTROPHILS 70 % (42.0-75.2); PLATELET ESTIMATE DECREASED (NORMAL)
[2019-02-23 08:14] LABS: HYPOCHROMIA 1+
--- NOTE | 2019-02-23 08:15 | NUR ---
Pt is awake and A/Ox4, sitting up in bed talking with housekeeping. Saline lock to right AC is free of complications. Pt states her pain is minimal, 2/10 on the numeric scale to back. Pt is up as tolerated in room. Denies any other needs.
[2019-02-23] MEDS ORDERED: OMNICEF 300MG300 MG PO (09:46)
--- NOTE | 2019-02-23 12:57 | NUR ---
Pt was discharged home from hospital. All discharge instructions and paperwork was reviewed with pt who expressed understanding and had no questions. Saline lock removed, catheter tip intact. New prescription was sent electronically. Pt was escorted out of facility by staff.
== END 2019-02-23 13:00 | disposition home or self-care (01) ==
LOC: COL.ER 22:42 → MEDICAL 02-21 04:12
PROVIDERS: Emergency Medicine; Nurse Practitioner Family
DX: N39.0 Urinary tract infection, site not specified (principal); B96.20 Unspecified Escherichia coli [E. coli] as the cause of diseases classified elsewhere; Z16.30 Resistance to unspecified antimicrobial drugs; N20.0 Calculus of kidney; K74.60 Unspecified cirrhosis of liver; D61.818 Other pancytopenia; I10 Essential (primary) hypertension; K76.6 Portal hypertension; B19.20 Unspecified viral hepatitis C without hepatic coma; E66.01 Morbid (severe) obesity due to excess calories; Z68.41 Body mass index [BMI] 40.0-44.9, adult; Z87.440 Personal history of urinary (tract) infections; Z87.891 Personal history of nicotine dependence
CPT/HCPCS: G0378; J0780; J2405; J3010; J7030; J7120; Q9967

== ENCOUNTER 2019-05-05 10:11 | Emergency (ER) | payer MEDICARE ==
[~2019-05-05] VITALS: Ht 154.9 cm; Wt 97.7 kg
[~2019-05-05 10:11] MED LIST changes: +MOTRIN 200200 MG/TAB PO
[2019-05-05 10:14] VITALS: TEMP 98
[2019-05-05 10:44] LABS: ALBUMIN 3.2 gm/dL (3.5-5.0); BILIRUBIN,TOTAL 6.4 mg/dL (0.0-1.0); CREATININE, serum 0.52 (0.52-1.25); POTASSIUM 4.1 mmol/L (3.4-5.0); TOTAL PROTEIN 7.4 gm/dL (6.4-8.2)
[2019-05-05 10:54] LABS: BASO % 0.3 % (0.0-2.0); EOS % 0.3 % (0-4.0); GRAN # 2.9 (1.4-6.5); GRAN % 88.9 % (42.2-75.2); HEMATOCRIT 39.8 % (37.0-47.0); HEMOGLOBIN 13.2 g/dl (12.5-16.0); LYMPH # 0.2 (1.2-3.4); LYMPH % 5.1 % (20.0-51.0); MEAN CELL VOLUME 103 fl (80.0-100.0); MEAN CORPUSCULAR HEMOGLOBIN 34 pg (27.0-31.0); MEAN CORPUSCULAR HGB CONC 33 g/dl (33.0-37.0); MEAN PLATELET VOLUME 11.9 fl (7.4-10.4); MONO # 0.2 (0.1-0.6); MONO % 4.5 % (1.7-9.3); RED BLOOD COUNT 3.87 M/mm3 (4.10-5.30); REDCELL DISTRIBUTION WIDTH-CV 14.6 % (11.5-14.5)
[2019-05-05 11:02] LABS: PLATELET COUNT 48 K/mm3 (130-400)
[2019-05-05] MEDS ORDERED: ZOFRAN ODT4 MG PO (11:11)
[2019-05-05 11:54] VITALS: BP 162/84; PULSE 94
[2019-05-06] VITALS (289 sets, daily range): O2SAT 82–97
[2019-05-06] MEDS ORDERED: FLEXERIL 1010 MG/TAB PO (14:39)
[2019-05-07] VITALS (377 sets, daily range): O2SAT 84–100
== END 2019-05-05 11:54 | disposition home or self-care (01) ==
LOC: COL.ER 10:11
PROVIDERS: Emergency Medicine
DX: R11.2 Nausea with vomiting, unspecified (principal); R19.7 Diarrhea, unspecified; I10 Essential (primary) hypertension; E78.5 Hyperlipidemia, unspecified; E66.01 Morbid (severe) obesity due to excess calories; Z68.41 Body mass index [BMI] 40.0-44.9, adult; Z85.3 Personal history of malignant neoplasm of breast; Z87.19 Personal history of other diseases of the digestive system; Z90.49 Acquired absence of other specified parts of digestive tract
CPT/HCPCS: J2405; J2550; J7030

== ENCOUNTER 2019-05-06 10:32 | Inpatient (IN) | payer MEDICARE, OTHER ==
[~2019-05-06] VITALS: Ht 154.9 cm; Wt 99.4 kg
[2019-05-06] VITALS (42 sets, daily range): BP systolic 112–141; BP diastolic 62–93; PULSE 100–103; TEMP 97.6–98.6; O2SAT 94–99
[~2019-05-06 10:32] MED LIST changes: +ZOFRAN ODT4 MG PO
[2019-05-06 11:38] LABS: EOS % 0.9 % (0-4.0); GRAN # 2.7 (1.4-6.5); GRAN % 81.4 % (42.2-75.2); HEMOGLOBIN 13.1 g/dl (12.5-16.0); LYMPH # 0.4 (1.2-3.4); LYMPH % 10.5 % (20.0-51.0); MEAN CELL VOLUME 104 fl (80.0-100.0); MEAN CORPUSCULAR HEMOGLOBIN 33 pg (27.0-31.0); MEAN CORPUSCULAR HGB CONC 32 g/dl (33.0-37.0); MEAN PLATELET VOLUME 11.7 fl (7.4-10.4); MONO # 0.2 (0.1-0.6); MONO % 6.6 % (1.7-9.3); RED BLOOD COUNT 3.96 M/mm3 (4.10-5.30); REDCELL DISTRIBUTION WIDTH-CV 14.9 % (11.5-14.5)
[2019-05-06 11:43] LABS: INR 1.5 (0.8-3.0); PROTHROMBIN TIME 18.1 SECONDS (9.7-12.8)
[2019-05-06 11:46] LABS: PARTIAL THROMBOPLASTIN TIME 40.8 SECONDS (26.0-37.0)
[2019-05-06 11:53] LABS: ALANINE AMINOTRANSFERASE 44 U/L (9-52); ALBUMIN 3.1 gm/dL (3.5-5.0); ALKALINE PHOSPHATASE 90 U/L (50-136); ANION GAP 8 mmol/L (7-16); AST,SGOT 49 U/L (15-37); BILIRUBIN,TOTAL 5.5 mg/dL (0.0-1.0); BLOOD UREA NITROGEN 25 mg/dL (7-17); C-REACTIVE PROTEIN 1.7 mg/dL (0.0-0.9); CALCIUM 7.8 mg/dL (8.4-10.2); CARBON DIOXIDE 24 mmol/L (22-30); CHLORIDE 109 mmol/L (98-107); CREATININE, serum 0.54 (0.52-1.25); GLUCOSE 89 mg/dL (74-106); LIPASE 124 U/L (23-300); MAGNESIUM 1.7 mg/dL (1.6-2.3); POTASSIUM 3.9 mmol/L (3.4-5.0); SODIUM 141 mmol/L (137-145); TOTAL PROTEIN 7.3 gm/dL (6.4-8.2)
[2019-05-06 12:03] LABS: PLATELET COUNT 46 K/mm3 (130-400); TROPONIN-I < 0.012 ng/mL (0.000-0.035)
--- NOTE | 2019-05-06 14:00 | NUR ---
Arrives to ICU room 4 acc by ED RN. Patient transfers self by sliding from ED stretcher to bed. Belongings placed in closet. Hospitalist notified of arrival. Plan to place PICC as pt has L limb alert in place due to history of lymph node resection 2nd to breast CA (history, not current) AIVS notified of procedure. Lab in to draw follow up lactic. RN requests to wait until PICC placed to obtain sample. RN to call lab when placed.
[2019-05-06] MEDS ORDERED: FLEXERIL 1010 MG/TAB PO (14:39)
--- NOTE | 2019-05-06 15:30 | NUR ---
PAM eugene met with the patient to discuss a discharge plan. The patient lives in [place] with her two daughters and other extended family. The patient has a walker and reports she needs assistance stepping over the tub for showers, daughters provide support. The patient's PCP is CHADWICK Lockwood and patient receives medications from [facility] and reports she does have difficulties affording them, at times. The patient has advanced directives in the EMR. The patient was inquiring about a shower chair. PAM eugene contacted Pam at [facility] and [facility] reports they do have a shower chair. PAM eugene will collaborate with the patient's family for the shower chair pick-up. PAM eugene provided a [facility] Resource Guide for the patient and explained the services. The patient has transportation at discharge. director of maternity services will continue to follow to ensure a safe discharge.
--- NOTE | 2019-05-06 16:00 | NUR ---
Dr Quintero notified of consult. Will see in am. Plan to do thoracentesis at that time.
--- NOTE | 2019-05-06 16:30 | NUR ---
Right upper chest port accessed c 1" Heuber needle. Immediate brisk blood return. Follow up lactic sent at this time.
--- NOTE | 2019-05-06 19:30 | NUR ---
Bedside report received from QUEENIE Ty. Care assumed at this time.
--- NOTE | 2019-05-06 20:00 | NUR ---
Patient incontinent, pericare provided and purewick placed. Urine was dark luke with clots, and was cloudy and malodorous. Patient educated about purewick and to use call light for assistance-pleasant and cooperative and denies discomfort at this time.
[2019-05-06 20:06] LABS: COLLECTION METHOD CLEAN CATCH
[2019-05-06 20:22] LABS: MUCOUS Present /lpf; PH 5 (5-8); URINE APPEARANCE Cloudy; URINE BACTERIA Rare /hpf; URINE BILIRUBIN Negative (NEGATIVE); URINE BLOOD 2+ (NEGATIVE); URINE COLOR Amber; URINE GLUCOSE Negative (NEGATIVE); URINE KETONE Trace (NEGATIVE); URINE LEUKOCYTE ESTERASE 2+ (NEGATIVE); URINE NITRATE Positive (NEGATIVE); URINE PROTEIN(semi-quant) 1+ (NEGATIVE); URINE RBC >50 /hpf; URINE UROBILINOGEN >=4.0 mg/dL (NEGATIVE)
[2019-05-07] VITALS (12 sets, daily range): BP systolic 120–147; BP diastolic 58–86; PULSE 93–109; TEMP 98–98.9
--- NOTE | 2019-05-07 00:52 | NUR ---
Patient complaining of bladder cramps and gas. Assisted to bedside commode-tolerated well. Patient also states she is having trouble sleeping. See EMAR for medication adminstration.
--- NOTE | 2019-05-07 06:20 | NUR ---
Patient returned from radiology in wheelchair, tolerated fair but short of breath with exertion. Patient states pain was better prior to movement but is hoping rest will help again now that she is back in bed. Purwick and monitoring equipment replaced, IV infusing into portacath well, labs drawn as well without incident. Patient pleasant and cooperative.
[2019-05-07 06:47] LABS: ALBUMIN 2.7 gm/dL (3.5-5.0); BILIRUBIN,TOTAL 5.6 mg/dL (0.0-1.0); CALCIUM 7.4 mg/dL (8.4-10.2); CREATININE, serum 0.48 (0.52-1.25); TOTAL PROTEIN 6.6 gm/dL (6.4-8.2)
[2019-05-07 06:48] LABS: INR 1.8 (0.8-3.0); PROTHROMBIN TIME 20.9 SECONDS (9.7-12.8)
[2019-05-07 06:53] LABS: HEMOGLOBIN 12.2 g/dl (12.5-16.0); MEAN CELL VOLUME 104 fl (80.0-100.0); MEAN CORPUSCULAR HEMOGLOBIN 35 pg (27.0-31.0); MEAN CORPUSCULAR HGB CONC 33 g/dl (33.0-37.0); MEAN PLATELET VOLUME 12.3 fl (7.4-10.4); PLATELET COUNT 50 K/mm3 (130-400); RED BLOOD COUNT 3.53 M/mm3 (4.10-5.30); REDCELL DISTRIBUTION WIDTH-CV 15.5 % (11.5-14.5)
[2019-05-07 07:06] LABS: HEMATOCRIT 36.6 % (37.0-47.0)
[2019-05-07 08:05] LABS: BAND 22 % (0-10); LYMPHOCYTE 3 % (20.0-51.0); NEUTROPHILS 68 % (42.0-75.2); PLATELET ESTIMATE DECREASED (NORMAL)
[2019-05-07 08:41] LABS: BILIRUBIN UNCONJUGATED 3.5 mg/dL (0.0-1.1); BILIRUBIN,DIRECT 1.7 mg/dL (0.0-0.4)
[2019-05-07 10:51] LABS: GLUCOSE,PLEURAL FLUID 78 mg/dL
[2019-05-07 10:52] LABS: PLEURAL FLUID RBC 12000 /mm3 (0-0); PLEURAL FLUID WBC 737 /mm3
[2019-05-07 10:57] LABS: TOTAL PROTEIN,PLEURAL FLUID < 2.0 gm/dL
[2019-05-07 11:00] LABS: PLEURAL FLUID APPEARANCE CLOUDY; PLEURAL FLUID COLOR YELLOW
--- NOTE | 2019-05-07 13:24 | NUR ---
PT DOWN TO CT OFF MONITOR.
--- NOTE | 2019-05-07 16:00 | NUR ---
REPORT CALLED TO MARGARITA JEROME. ALL QUESTIONS ANSWERED. PT WHEELED UP TO ROOM 309. PT PLACED ON TELE BOX. ALL BELONGINGS WITH PT.
--- NOTE | 2019-05-07 19:44 | NUR ---
Pt up to room 309 from ICU. Report received from Joann. Pt ambulated from WC to bed, no concerns. Pt A&O. Pt on room air, denies SOB, states she "is breathing much better now". Pt had Rt sd thora w/ 2l removed, bandaid to Rt sd, CDI. Pt has rt chest port w/ NS at 60 ml/hr running w/o complications. LS diminished/difficult to hear d/t body habitus. heart RRR, slightly tachy. Radial pulses strong bilaterally. Pt had new purewick placed when arriving to floor, hooked to continuous low suction. No complications so far. No concerns expressed at this time.
--- NOTE | 2019-05-07 20:45 | NUR ---
Shift assessment complete. Patient in bed, resting. Denies pain. Denies further needs at this time. Will continue to monitor.
--- NOTE | 2019-05-07 23:45 | NUR ---
Patient ambulating to with standby assist. External catheter fell off, and patient states she doesn't think she needs it. Incontinent of urine, robina-care done by patient. Personal brief placed per pt request. Denies further needs at this time.
[2019-05-08] VITALS (7 sets, daily range): BP systolic 121–148; BP diastolic 53–72; PULSE 86–105; TEMP 97.9–98.2
--- NOTE | 2019-05-08 02:32 | NUR ---
PATIENT WAS SLEEPING NAD HAS NO SIGN OF DISTRESS
--- NOTE | 2019-05-08 03:55 | NUR ---
Patient in bed, awake. Denies pain. Denies further needs at this time. Will continue to monitor.
[2019-05-08 06:34] LABS: HEMOGLOBIN 10.9 g/dl (12.5-16.0); MEAN CELL VOLUME 103 fl (80.0-100.0); MEAN CORPUSCULAR HEMOGLOBIN 34 pg (27.0-31.0); MEAN CORPUSCULAR HGB CONC 33 g/dl (33.0-37.0); MEAN PLATELET VOLUME 12.6 fl (7.4-10.4); RED BLOOD COUNT 3.25 M/mm3 (4.10-5.30); REDCELL DISTRIBUTION WIDTH-CV 15.4 % (11.5-14.5)
[2019-05-08 06:38] LABS: ALBUMIN 2.2 gm/dL (3.5-5.0); BILIRUBIN,TOTAL 3.6 mg/dL (0.0-1.0); CALCIUM 7.3 mg/dL (8.4-10.2); CREATININE, serum 0.4 (0.52-1.25); POTASSIUM 3.7 mmol/L (3.4-5.0); TOTAL PROTEIN 5.6 gm/dL (6.4-8.2)
[2019-05-08 06:38] LABS: HEMATOCRIT 33.4 % (37.0-47.0)
[2019-05-08 06:40] LABS: PLATELET COUNT 39 K/mm3 (130-400)
[2019-05-08 07:11] LABS: BAND 10 % (0-10); EOSINOPHIL 2 % (0-4); LYMPHOCYTE 12 % (20.0-51.0); METAMYELOCYTE 2 % (0-0); NEUTROPHILS 64 % (42.0-75.2); PLATELET ESTIMATE DECREASED (NORMAL)
--- NOTE | 2019-05-08 15:52 | NUR ---
Hospital Receiving Clerk met with patient to review discharge plan. Patient states she is interested in getting her own place because she is concerned about the few stairs where she currently lives. Patient states she could potentially stay with her son and daughter in law, Masood and Camille in [place], [place] because they have a one level. SW contacted [place] [employer] and provided patient copy of housing application. SW to continue to follow.
--- NOTE | 2019-05-08 15:54 | NUR ---
Travel Registered Nurse Pacu met with patient and patient's daughters June (ph#[phone]) and Soraya (ph#[phone]) to discuss discharge plan. Patient states now that she plans to return home with assistance from her daughters. Patient's daughters advised that they are currently working on moving to another home as their current residence has several code violations that have been reported to their landlord. SW spoke with patient about Home Health and provided Medicare.gov list of Home Health providers which include ratings. Patient states her first preference would be [facility] and second preference is [facility]. SW contacted [facility] and was advised they do not serve patients in the [facility]. BABITA provided this update and patient was agreeable to BABITA sending referral to [facility]. BABITA faxed referral to Rafael at [facility]. SW reviewed need for front wheeled walker. SW presented patient choice form and patient selected [facility]. SW looked into [place] and discovered [place] is permanently closed. Patient states her second preference is [facility] and SW updated patient choice form to reflect this change. BABITA faxed referral including completed order for front wheeled walker, facesheet, H&P, and therapy notes to [facility]. Patient stated she wants to complete DPOA-HC and designate her daughters. BABITA assisted patient in completing the form and then provided witness signature along with Kelli Rec[employer]. BABITA provided original and copies to patient and also placed a copy in patient chart. Patient inquired about a shower chair that Cheri JC contacted the [facility] about yesterday. BABITA contacted Pam at [facility] who advised patient's daughters could come pick it up during business hours. BABITA provided this update to patient's daughters who advise they will metal pickling equipment operator shower chair. Patient's daughters stated they would like to submit a formal complaint about [facility]. BABITA provided contact information for Amanda Plaza, Field Service Consultant. Patient and patient's daughters reported that they will be able to find a family member with a vehicle to provide transportation upon discharge. SW to continue to follow to ensure safe discharge.
--- NOTE | 2019-05-08 21:30 | NUR ---
Shift assessment complete. Patient in bed, awake. Denies pain. Denies further needs at this time. Will continue to monitor.
[2019-05-09 03:45] VITALS: BP 160/78; PULSE 97
--- NOTE | 2019-05-09 04:00 | NUR ---
Patient in bed, sleeping. Appears comfortable. Will continue to monitor.
[2019-05-09 05:52] LABS: HEMOGLOBIN 11.6 g/dl (12.5-16.0); MEAN CELL VOLUME 102 fl (80.0-100.0); MEAN CORPUSCULAR HEMOGLOBIN 34 pg (27.0-31.0); MEAN CORPUSCULAR HGB CONC 33 g/dl (33.0-37.0); MEAN PLATELET VOLUME 12.1 fl (7.4-10.4); PLATELET COUNT 50 K/mm3 (130-400); RED BLOOD COUNT 3.42 M/mm3 (4.10-5.30); REDCELL DISTRIBUTION WIDTH-CV 15.4 % (11.5-14.5)
[2019-05-09 05:53] LABS: HEMATOCRIT 34.9 % (37.0-47.0)
[2019-05-09 05:54] LABS: INR 1.9 (0.8-3.0); PROTHROMBIN TIME 22.1 SECONDS (9.7-12.8)
[2019-05-09 05:59] LABS: ALBUMIN 2.3 gm/dL (3.5-5.0); BILIRUBIN,TOTAL 2.9 mg/dL (0.0-1.0); CALCIUM 7.5 mg/dL (8.4-10.2); CREATININE, serum 0.47 (0.52-1.25); TOTAL PROTEIN 5.9 gm/dL (6.4-8.2)
[2019-05-09 06:40] LABS: HIV 1/2 Antibodies Non-Reactive; HIV-1p24 Antigen Non-Reactive
[2019-05-09 06:58] LABS: BAND 9 % (0-10); BASOPHIL 1 % (0-2); EOSINOPHIL 1 % (0-4); LYMPHOCYTE 20 % (20.0-51.0); NEUTROPHILS 64 % (42.0-75.2); PLATELET ESTIMATE DECREASED (NORMAL)
[2019-05-09] MEDS ORDERED: ALDACTONE50 MG PO (08:00)
[2019-05-09] MEDS ORDERED: LASIX 20MG TABL20 MG PO (08:01)
[2019-05-09 08:55] VITALS: BP 135/74; PULSE 95; TEMP 97.9
[2019-05-09 11:44] VITALS: BP 122/69; PULSE 93; TEMP 97.3
--- NOTE | 2019-05-09 14:15 | NUR ---
NOT IN ROOM
--- NOTE | 2019-05-09 16:06 | NUR ---
Movie Shot Camera Operator met with patient and confirmed that front wheeled walker had been delivered by [facility]. SW to continue to follow to ensure safe discharge.
--- NOTE | 2019-05-09 16:07 | NUR ---
Warehouse Operations Manager contacted Rafael at [facility] and was advised that they could accept referral.
[2019-05-09 17:33] LABS: HEPATITIS B CORE AB,TOTAL Negative (()); HEPATITIS B SURFACE ANTIBODY <2.0 (()); HEPATITIS B SURFACE ANTIGEN Negative (Negative); HEPATITIS C VIRUS ANTIBODY Negative (Negative)
--- NOTE | 2019-05-09 18:26 | NUR ---
PT WAS ON POST OP VITALS THIS AFTERNOON AFTER PROCEDURE. NO ISSUES NOTED, STAYED WNL. NO ISSUES NOTED. RESTING COMFORTABLY AT THIS TIME.
--- NOTE | 2019-05-09 20:30 | NUR ---
Initial shift assessment done- denies pain at this time, denies nausea,states no SOB states "Im breathing so much better!" o2 sats 95-96% on RA, Right chest PAC. Lung sound decreased RLL, has generalized edema-
[2019-05-09 23:28] VITALS: BP 135/68; PULSE 103
[2019-05-10 00:50] LABS: HEPATITIS AB (HAV) IGG INDEX 2.48 Index (<=1.00)
[2019-05-10 03:51] VITALS: BP 142/71; PULSE 110; TEMP 98.1
--- NOTE | 2019-05-10 05:41 | NUR ---
Quiet night- Up to bathroom- steady on feet--states did have a small nose bleed just a few minutes ago- has stopped at this time,, no requests, VSS
[2019-05-10 06:15] VITALS: BP 115/60; PULSE 98; TEMP 99.6
[2019-05-10 06:45] LABS: HEMOGLOBIN 11.7 g/dl (12.5-16.0); MEAN CELL VOLUME 101 fl (80.0-100.0); MEAN CORPUSCULAR HEMOGLOBIN 34 pg (27.0-31.0); MEAN CORPUSCULAR HGB CONC 33 g/dl (33.0-37.0); RED BLOOD COUNT 3.48 M/mm3 (4.10-5.30); REDCELL DISTRIBUTION WIDTH-CV 15.7 % (11.5-14.5)
[2019-05-10 06:51] LABS: HEMATOCRIT 35.1 % (37.0-47.0)
[2019-05-10 06:52] LABS: PLATELET COUNT 46 K/mm3 (130-400)
[2019-05-10 07:04] LABS: ALBUMIN 2.3 gm/dL (3.5-5.0); BILIRUBIN,TOTAL 2.7 mg/dL (0.0-1.0); CALCIUM 7.7 mg/dL (8.4-10.2); CREATININE, serum 0.46 (0.52-1.25); POTASSIUM 3.9 mmol/L (3.4-5.0)
[2019-05-10 07:33] LABS: BAND 4 % (0-10); EOSINOPHIL 2 % (0-4); LYMPHOCYTE 17 % (20.0-51.0); MYELOCYTE 1 % (0-0); NEUTROPHILS 74 % (42.0-75.2); NUCLEATED RED BLOOD CELL 1 (0-6); PLATELET ESTIMATE DECREASED (NORMAL)
[2019-05-10] MEDS ORDERED: LEVAQUIN 750MG750 M1 PO (09:47)
[2019-05-10] MEDS ORDERED: PROTONIX 40MG T40 MG PO (09:52)
--- NOTE | 2019-05-10 11:55 | NUR ---
DISCHARGE EDUCATION PROVIDED. ALL QUESTIONS PROVIDED. NO ISSUES NOTED. S/S ASSISTED PT WITH GETTING SET UP FOR MEDS AND TAXI TO DISCHARGE. THIS NURSE ASSISTED PT IN GETTING THINGS TOGETHER AND THEN WHEELED PT TO TAXI. NO ISSUES OR CONSERNS VOICED. THIS NURSE DEACCESSED PORTACATH, NO ISSUES NOTED, NO BLEEDING, APPLIED GAUZE AND TEGADERM DRESSING OVER SITE.
--- NOTE | 2019-05-10 13:11 | NUR ---
Bio Medical Technician attended rounds with the team and patient to discharge home today with [facility]. BABITA contacted Rafael at [facility] and faxed discharge orders. BABITA met with the patient as she reports she cannot afford her medications upon discharge and may need a taxi voucher. 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 Patient reports she receives Social Security income but has no money right now. Patient has a follow up appointment with her established Primary Care Physician at [facility] on the . BABITA contacted [facility] to confirm. BABITA completed medication and taxi voucher for patient. BABITA placed completed vouchers on patient chart and provided update to Vaishali JEROME. BABITA contacted Etienne Sethi to set up picket labor union time and provided this update to Vaishali JEROME. BABITA met with patient and presented IM form. Patient reviewed and provided signature. SW placed IM in chart. No additional concerns at this time.
== END 2019-05-10 11:55 | disposition home or self-care (01) | DRG 432 ==
LOC: COL.ER 10:32 → ICU 12:51 → MEDICAL 12:51
PROVIDERS: Emergency Medicine; Internal Medicine Gastroenterology; Internal Medicine Pulmonary Disease; Nurse Practitioner Family; Physician Assistant; ADMIT Hospitalist
PROC: 0W993ZZ Drainage of Right Pleural Cavity, Percutaneous Approach (ICD-10-PCS; principal; 2019-05-07)
DX: K74.60 Unspecified cirrhosis of liver (principal); J96.01 Acute respiratory failure with hypoxia; J94.8 Other specified pleural conditions; K76.6 Portal hypertension; D61.818 Other pancytopenia; D68.9 Coagulation defect, unspecified; N39.0 Urinary tract infection, site not specified; E87.2 Acidosis; I85.10 Secondary esophageal varices without bleeding; J90 Pleural effusion, not elsewhere classified; A08.4 Viral intestinal infection, unspecified; B19.20 Unspecified viral hepatitis C without hepatic coma; E66.01 Morbid (severe) obesity due to excess calories; I10 Essential (primary) hypertension; K57.30 Diverticulosis of large intestine without perforation or abscess without bleeding; D12.0 Benign neoplasm of cecum; E86.0 Dehydration; K62.1 Rectal polyp; K31.89 Other diseases of stomach and duodenum; E80.6 Other disorders of bilirubin metabolism; E78.5 Hyperlipidemia, unspecified; Z87.440 Personal history of urinary (tract) infections; Z85.3 Personal history of malignant neoplasm of breast; Z92.21 Personal history of antineoplastic chemotherapy; Z92.3 Personal history of irradiation; Z90.49 Acquired absence of other specified parts of digestive tract; Z87.891 Personal history of nicotine dependence; Z88.6 Allergy status to analgesic agent
CPT/HCPCS: 87522; 99222-AI; 99232-AI; 99239; C9113; J1956; J2704; J7030; Q9967

== ENCOUNTER 2019-05-14 12:47 | Inpatient (IN) | payer MEDICARE, OTHER ==
[~2019-05-14] VITALS: Ht 154.9 cm; Wt 91.6 kg
[~2019-05-14 12:47] MED LIST changes: +ALDACTONE50 MG PO; +PROTONIX 40MG T40 MG PO
[2019-05-14 13:35] LABS: INR 1.5 (0.8-3.0); PROTHROMBIN TIME 17.9 SECONDS (9.7-12.8)
[2019-05-14 13:36] LABS: BASO % 0.3 % (0.0-2.0); EOS % 1.3 % (0-4.0); GRAN # 2.2 (1.4-6.5); GRAN % 70.2 % (42.2-75.2); HEMATOCRIT 37.9 % (37.0-47.0); HEMOGLOBIN 12.5 g/dl (12.5-16.0); LYMPH # 0.5 (1.2-3.4); LYMPH % 14.9 % (20.0-51.0); MEAN CELL VOLUME 100 fl (80.0-100.0); MEAN CORPUSCULAR HEMOGLOBIN 33 pg (27.0-31.0); MEAN CORPUSCULAR HGB CONC 33 g/dl (33.0-37.0); MEAN PLATELET VOLUME 11.6 fl (7.4-10.4); MONO # 0.4 (0.1-0.6); MONO % 12.7 % (1.7-9.3); PLATELET COUNT 60 K/mm3 (130-400); RED BLOOD COUNT 3.78 M/mm3 (4.10-5.30); REDCELL DISTRIBUTION WIDTH-CV 15.1 % (11.5-14.5)
[2019-05-14 13:44] LABS: ALANINE AMINOTRANSFERASE 35 U/L (9-52); ALBUMIN 2.6 gm/dL (3.5-5.0); ALKALINE PHOSPHATASE 92 U/L (50-136); ANION GAP 6 mmol/L (7-16); AST,SGOT 46 U/L (15-37); BILIRUBIN,TOTAL 3.1 mg/dL (0.0-1.0); BLOOD UREA NITROGEN 16 mg/dL (7-17); CALCIUM 7.5 mg/dL (8.4-10.2); CARBON DIOXIDE 27 mmol/L (22-30); CHLORIDE 106 mmol/L (98-107); CREATININE, serum 0.45 (0.52-1.25); GLUCOSE 108 mg/dL (74-106); POTASSIUM 3.4 mmol/L (3.4-5.0); SODIUM 139 mmol/L (137-145); TOTAL PROTEIN 6.7 gm/dL (6.4-8.2)
[2019-05-14 13:57] LABS: TROPONIN-I < 0.012 ng/mL (0.000-0.035)
[2019-05-14 13:58] LABS: ARTERIAL BLD GAS O2 SATURATION 92.3 % (92-100); ARTERIAL BLOOD GAS BASE EXCESS 0.4 (-2-2); ARTERIAL BLOOD GAS HCO3 24.8 meq/L (22-26); ARTERIAL BLOOD GAS PCO2 39.1 mmHg (35-45); ARTERIAL BLOOD GAS PO2 63.3 mmHg (80-100); ARTERIAL BLOOD GAS pH 7.42 (7.35-7.45)
[2019-05-14 18:26] VITALS: BP 131/66; PULSE 99; TEMP 98.1
--- NOTE | 2019-05-14 18:30 | NUR ---
Pt up to room 352. Report received from QUEENIE Hedrick. Med rec, allergies, pharmacy and 5 page completed. Pt A&O, denies dizziness, chest pain, N/V/D, abdominal pain. Pt states her SOB "comes and goes". Pt on 2L NC at this time, currently denies any SOB, pt is just sitting in bed at this time. Rt side lung sounds diminished throughout, left side CTA. Pulses strong bilaterally. Pt on tele. [facility] martin cath, accessed in ER, flushes w/ good blood return. No other concerns expressed at this time. Pt provided w/ briefs. This nurse called kitchen to get food for pt, informed it would arrive a little later. Report given to QUEENIE Flowers.
[2019-05-14 19:55] VITALS: BP 133/76; PULSE 99; TEMP 98.3
--- NOTE | 2019-05-14 20:40 | NUR ---
Shift assessment complete. Pt resting in bed, awake, a&o, cooperative c cares. Pt reports feeling "better than when I got here. Pt reports continued mild pleuritic chest pain et SOB. O2 per NC. Tele in place. Portacath noted to R chest, patent c good return. Pt denies further needs. Call light in reach, will continue to monitor.
[2019-05-14 22:16] VITALS: BP 145/72; PULSE 103; TEMP 97.8
--- NOTE | 2019-05-15 01:16 | NUR ---
Patient in bed, sleeping. Appears comfortable. Will reassess.
[2019-05-15 04:57] VITALS: BP 144/71; PULSE 96; TEMP 97.6
--- NOTE | 2019-05-15 05:13 | NUR ---
Patient in bed, resting. Denies pain. Denies further needs at this time. Will continue to monitor.
[2019-05-15 06:40] LABS: EOS # 0.1 (0.0-0.7); EOS % 2.3 % (0-4.0); GRAN # 1.9 (1.4-6.5); GRAN % 62.5 % (42.2-75.2); HEMOGLOBIN 12.1 g/dl (12.5-16.0); LYMPH # 0.7 (1.2-3.4); MEAN CELL VOLUME 102 fl (80.0-100.0); MEAN CORPUSCULAR HEMOGLOBIN 33 pg (27.0-31.0); MEAN CORPUSCULAR HGB CONC 33 g/dl (33.0-37.0); MONO # 0.4 (0.1-0.6); MONO % 11.5 % (1.7-9.3); PLATELET COUNT 56 K/mm3 (130-400); RED BLOOD COUNT 3.63 M/mm3 (4.10-5.30); REDCELL DISTRIBUTION WIDTH-CV 15.3 % (11.5-14.5)
[2019-05-15 06:41] LABS: HEMATOCRIT 36.9 % (37.0-47.0)
[2019-05-15 06:42] LABS: ALBUMIN 2.5 gm/dL (3.5-5.0); BILIRUBIN,TOTAL 2.8 mg/dL (0.0-1.0); CALCIUM 7.7 mg/dL (8.4-10.2); CREATININE, serum 0.45 (0.52-1.25); POTASSIUM 3.7 mmol/L (3.4-5.0); TOTAL PROTEIN 6.7 gm/dL (6.4-8.2)
[2019-05-15 06:55] LABS: INR 1.6 (0.8-3.0); PROTHROMBIN TIME 18.5 SECONDS (9.7-12.8)
--- NOTE | 2019-05-15 10:00 | NUR ---
Dr. Quintero completed bedside thoracentesis to right side today, fluid collected and discarded as instructed. VORB obtained for portable cxr.
--- NOTE | 2019-05-15 11:13 | NUR ---
Initial visit; Patient thanked Board Of Directors for looking in on her and offering encouragement and prayer. Board Of Directors will follow up.
[2019-05-15 12:21] VITALS: BP 120/60; PULSE 102; TEMP 98.3
--- NOTE | 2019-05-15 13:51 | NUR ---
BABITA met with the patient and the patient's daughter, Soraya to discuss a discharge plan. The patient is a recent readmission and a patient readmission interview was conducted. The patient lives in [place] with her daughters and extended family. The family is the process of moving to a new apartment within the next two weeks. The patient would like to continue with [facility] upon discharge. The patient has a walker and before this recent hospitalization the patient was independent with ADLs. She did require assistance to get in and out of the shower. The patient's PCP is CHADWICK Lockwood and patient receives medications from [facility] and has diffculties paying for them. The patient received a medical voucher last hospitalization. The patient has advanced directives in the EMR. The patient inquired about applying for Medicaid. The patient previously applied for Medicaid with EMELI Akins Financial Counselor but the patient missed the deadline for submitting paperwork. BABITA contacted Tashi and he will meet with the patient to reapply for Medicaid. The patient discharged 05/10 with home health with [facility]. The patient reports she spoke to [facility] and both parties were agreeable to waiting until the patient moves into her new apartment to start services. The patient did have a follow-up appointment with her PCP on 05/16. That appointment was cancelled by the patient's daughter due to hospitalization. The patient reports she was provided education about diagnosis and medications before last discharge. 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 donor services technician will continue to follow to ensure a safe discharge.
--- NOTE | 2019-05-15 16:00 | NUR ---
Patient arrived to floor from ICU at 1500 via bed, she is sleeping soundly. Is noted to be snoring at times. Assessed and patient was not disturbed. Lungs are clear. Abdomen is soft. Heart regular. Garner is in place to dependent drainage. There is no edema noted to BLEs. Mouth appears dry. Call light in reach.
[2019-05-15 16:42] VITALS: BP 128/58; PULSE 98; TEMP 98.4
--- NOTE | 2019-05-15 19:32 | NUR ---
Dr. Muhammad to see patient, received order for MRI and nephrology consult. MRI order placed, and Dr. Abreu was in to see patient this afternoon. She is currently awake and alert sitting on side of bed. Alarm is activated. Diet was obtained and water provided. Sat up independently and requested hair brush. Does not remember all activities from this morning. Does state she feels better after sleeping. Call light and personal items are within reach.
--- NOTE | 2019-05-15 19:53 | NUR ---
Patient is resting in bed, no complaints, personal items and call light are within reach.
--- NOTE | 2019-05-15 20:00 | NUR ---
Shift assessment complete. Patient in bed, awake. Denies pain. Right chest portacath flushed per protocol. Denies further needs at this time. Will continue to monitor.
[2019-05-15 21:16] VITALS: BP 108/63; PULSE 93; TEMP 98.3
[2019-05-16 00:15] VITALS: BP 126/63; PULSE 90; TEMP 97.8
[2019-05-16 03:55] VITALS: BP 119/61; PULSE 85; TEMP 97.7
--- NOTE | 2019-05-16 04:00 | NUR ---
Patient in bed, resting. Denies pain. Denies need to go to the bathroom. Oxygen 97% on 4L, decreased to 3L. Remains 97%. Denies further needs at this time. Will continue to monitor.
[2019-05-16 06:39] LABS: EOS # 0.1 (0.0-0.7); EOS % 3.8 % (0-4.0); GRAN # 1.5 (1.4-6.5); GRAN % 61.1 % (42.2-75.2); LYMPH # 0.6 (1.2-3.4); LYMPH % 25.1 % (20.0-51.0); MEAN CELL VOLUME 102 fl (80.0-100.0); MEAN CORPUSCULAR HEMOGLOBIN 33 pg (27.0-31.0); MEAN CORPUSCULAR HGB CONC 32 g/dl (33.0-37.0); MEAN PLATELET VOLUME 11.3 fl (7.4-10.4); MONO # 0.2 (0.1-0.6); MONO % 9.6 % (1.7-9.3); PLATELET COUNT 51 K/mm3 (130-400); RED BLOOD COUNT 3.34 M/mm3 (4.10-5.30)
[2019-05-16 06:41] LABS: HEMATOCRIT 33.9 % (37.0-47.0)
[2019-05-16 06:44] LABS: ALBUMIN 2.2 gm/dL (3.5-5.0); BILIRUBIN,TOTAL 2.5 mg/dL (0.0-1.0); CALCIUM 7.4 mg/dL (8.4-10.2); CREATININE, serum 0.44 (0.52-1.25); POTASSIUM 3.7 mmol/L (3.4-5.0)
--- NOTE | 2019-05-16 08:00 | NUR ---
Seen patient awake, sitting on bed. With O2 at 3LPM via NC. SCD is ongoing and applied at both lower extremities. Patient denies any pain or difficulty of breathing.
[2019-05-16 08:24] VITALS: BP 110/62; PULSE 81; TEMP 97.7
--- NOTE | 2019-05-16 11:00 | NUR ---
Changed patient's briefs and beddings. Perineal care and bath wipes done. Assisted patient in the bedside chair. No complains of pain.
--- NOTE | 2019-05-16 11:07 | NUR ---
Certified Composites Technician attended rounds with the team. Patient expressed interest in longterm stay. BABITA met with patient and presented Medicare.gov list of longterm facilities within a 50 mile radius of [place]. SW also presented patient choice form. SW selected [facility] as first preference and did not have a second preference at this time. Patient signed choice form selecting and BABITA placed form in chart. BABITA faxed referral to Montse at and will await screen. BABITA contacted [facility] at [facility] as patient was set up with their services during last hospitalization which occurred last week. BABITA updated Rafael that patient is exploring SNF. SW to continue to follow.
[2019-05-16 12:23] VITALS: BP 107/53; PULSE 86; TEMP 97
--- NOTE | 2019-05-16 13:06 | NUR ---
Montse from [facility] cannot accept the patient for shelter stay. SW will meet with the patient to discuss second option for skilled.
--- NOTE | 2019-05-16 16:00 | NUR ---
Changed patient's briefs, moderately soaked. Perineal care done. Denies any pain.
[2019-05-16 16:20] VITALS: BP 101/52; PULSE 85; TEMP 98.2
--- NOTE | 2019-05-16 18:30 | NUR ---
Endorsed patient to Alysa security shift manager nurse. Patient currently on bed, eating dinner. Denies any pain or difficulty of breathing.
--- NOTE | 2019-05-16 20:00 | NUR ---
Received report from QUEENIE Tobias. Assessment complete. Alert and oriented. Denies any pain or SOB at this time. Portacath to [facility] accessed with dressing CDI. Tele monitor in place, leads checked. Fall precautions kept in place. Needs met. Call light within reach.
[2019-05-16 20:43] VITALS: BP 105/57; PULSE 94; TEMP 98.3
[2019-05-17 00:19] VITALS: BP 115/55; PULSE 86; TEMP 98.4
[2019-05-17 04:21] VITALS: BP 126/62; PULSE 86; TEMP 98.4
--- NOTE | 2019-05-17 05:07 | NUR ---
Pt uneventful during this shift. Call light within reach.
[2019-05-17 06:31] LABS: HEMOGLOBIN 10.8 g/dl (12.5-16.0); MEAN CELL VOLUME 102 fl (80.0-100.0); MEAN CORPUSCULAR HEMOGLOBIN 33 pg (27.0-31.0); MEAN CORPUSCULAR HGB CONC 32 g/dl (33.0-37.0); MEAN PLATELET VOLUME 10.9 fl (7.4-10.4); PLATELET COUNT 55 K/mm3 (130-400); RED BLOOD COUNT 3.28 M/mm3 (4.10-5.30); REDCELL DISTRIBUTION WIDTH-CV 14.9 % (11.5-14.5)
[2019-05-17 06:40] LABS: HEMATOCRIT 33.4 % (37.0-47.0)
[2019-05-17 06:47] LABS: INR 1.6 (0.8-3.0); PROTHROMBIN TIME 18.5 SECONDS (9.7-12.8)
[2019-05-17 06:49] LABS: ALBUMIN 2.2 gm/dL (3.5-5.0); BILIRUBIN,TOTAL 2.1 mg/dL (0.0-1.0); CALCIUM 7.9 mg/dL (8.4-10.2); CREATININE, serum 0.42 (0.52-1.25); POTASSIUM 3.6 mmol/L (3.4-5.0)
--- NOTE | 2019-05-17 07:00 | NUR ---
Report received from CHRISTOPHER Watt. PT in bed resting, incontinent of urine, changed in bed per request. Will continue to monitor.
--- NOTE | 2019-05-17 07:14 | NUR ---
Report given to QUEENIE Santo.
[2019-05-17 08:12] VITALS: BP 115/56; PULSE 86; TEMP 98.5
[2019-05-17 08:49] LABS: BAND 8 % (0-10); EOSINOPHIL 3 % (0-4); LYMPHOCYTE 17 % (20.0-51.0); METAMYELOCYTE 1 % (0-0); NEUTROPHILS 69 % (42.0-75.2); PLATELET ESTIMATE DECREASED (NORMAL)
--- NOTE | 2019-05-17 10:15 | NUR ---
Assessment charted. pt resting in chair at side of bed. denies pain. bandaid to R scapula from previoius thoracentesis is CDI. PAC to RUC. 02 at 3L NJ. Denies needs, will continue to monitor.
--- NOTE | 2019-05-17 10:23 | NUR ---
BABITA met with the patient to discuss residential placement. The [facility] choice is [facility]. The patient to chose another choice once she discusses options with her daughter this day. BABITA faxed referral to [facility]. Awaiting response.
[2019-05-17 12:31] VITALS: BP 97/48; PULSE 93; TEMP 98.1
--- NOTE | 2019-05-17 13:42 | NUR ---
The patient's other choice for referral is [facility]. SW faxed referral. Awaiting response.
--- NOTE | 2019-05-17 14:48 | NUR ---
[facility] reports they cannnot accept the patient for a detention stay. SW will notify the patient. SW awaiting response from [facility].
--- NOTE | 2019-05-17 16:07 | NUR ---
Kraig from [facility] reports they can accept the patient for a care home stay. Social service will continue to follow.
[2019-05-17 16:19] VITALS: BP 108/86; PULSE 98; TEMP 97.8
--- NOTE | 2019-05-17 17:01 | NUR ---
Pt back to bed after bedbath provided. Pt very incontinent of urine and saturated brief and chucks underneath. Pericare provided. Pt doing well. Resting in bed quietly, will give bedside shift report to nightshift nurse who will resume care.
--- NOTE | 2019-05-17 20:00 | NUR ---
Received report from QUEENIE Santo. Assessment complete. Alert and oriented. Denies any pain, SOB or discomfort at this time. Rt portacath accessed, dressing CDI, flushed well. Tele monitor in place, leads checked. Needs met. Call light within reach.
[2019-05-17 21:52] VITALS: BP 106/60; PULSE 95; TEMP 97.8
[2019-05-18] VITALS (7 sets, daily range): BP systolic 102–129; BP diastolic 50–77; PULSE 87–98; TEMP 98.2–98.6
--- NOTE | 2019-05-18 04:51 | NUR ---
Pt uneventful during this shift. no complaints made. Call light within reach.
[2019-05-18 06:43] LABS: BASO % 0.4 % (0.0-2.0); EOS # 0.1 (0.0-0.7); EOS % 3.3 % (0-4.0); GRAN # 1.5 (1.4-6.5); GRAN % 60.5 % (42.2-75.2); HEMOGLOBIN 11.4 g/dl (12.5-16.0); LYMPH # 0.6 (1.2-3.4); LYMPH % 22.4 % (20.0-51.0); MEAN CELL VOLUME 102 fl (80.0-100.0); MEAN CORPUSCULAR HEMOGLOBIN 33 pg (27.0-31.0); MEAN CORPUSCULAR HGB CONC 32 g/dl (33.0-37.0); MONO # 0.3 (0.1-0.6); PLATELET COUNT 60 K/mm3 (130-400); RED BLOOD COUNT 3.45 M/mm3 (4.10-5.30); REDCELL DISTRIBUTION WIDTH-CV 14.9 % (11.5-14.5)
[2019-05-18 06:50] LABS: HEMATOCRIT 35.2 % (37.0-47.0)
[2019-05-18 07:09] LABS: ALBUMIN 2.3 gm/dL (3.5-5.0); BILIRUBIN,TOTAL 2.1 mg/dL (0.0-1.0); CALCIUM 7.9 mg/dL (8.4-10.2); CREATININE, serum 0.43 (0.52-1.25); POTASSIUM 3.9 mmol/L (3.4-5.0); TOTAL PROTEIN 6.5 gm/dL (6.4-8.2)
--- NOTE | 2019-05-18 07:13 | NUR ---
Report given to QUEENIE Vera.
--- NOTE | 2019-05-18 08:08 | NUR ---
Assessment complete. Pt is resting in bed. Denies pain or SOB. Pt does report feeling some constipation. Abdomen is soft with audible bowel sounds. Pt denies needs at this time. Call light within reach.
--- NOTE | 2019-05-18 11:13 | NUR ---
Pt up to bathroom. States that she would like to shower once her daughter is here with her shampoo. Assisted back to bed. Denies needs. Bed alarm on. Call light within reach.
--- NOTE | 2019-05-18 19:50 | NUR ---
Report rcvd from QUEENIE Castillo. Pt is laying in bed during report, and is watching TV. Assessment completed. Pt has no c/o pain or discomfort. Call light and personal things within reach. No futher concerns at this time.
--- NOTE | 2019-05-19 00:45 | NUR ---
Pt had an incontinent bowel movement. Pt called after she cleaned herself up. ASHIA Castellon and this RN changed the bedding and replaced the chucks. Pt was checked and cleaned to ensure cleanliness post BM. Pt returned to bed. no further concerns.
[2019-05-19 04:13] VITALS: BP 100/55; BP 118/54; PULSE 80; PULSE 99; TEMP 98; TEMP 98.1
--- NOTE | 2019-05-19 05:39 | NUR ---
Pt had an uneventful night. No concerns for this pt, she is A&O as well as independent. Pt watched movies the majority of the night. No further concerns for this patient.
[2019-05-19 06:46] LABS: BASO % 0.4 % (0.0-2.0); EOS # 0.1 (0.0-0.7); EOS % 3.1 % (0-4.0); GRAN # 1.3 (1.4-6.5); GRAN % 58.6 % (42.2-75.2); HEMOGLOBIN 10.8 g/dl (12.5-16.0); LYMPH # 0.6 (1.2-3.4); LYMPH % 25.4 % (20.0-51.0); MEAN CELL VOLUME 101 fl (80.0-100.0); MEAN CORPUSCULAR HEMOGLOBIN 33 pg (27.0-31.0); MEAN CORPUSCULAR HGB CONC 33 g/dl (33.0-37.0); MEAN PLATELET VOLUME 11.8 fl (7.4-10.4); MONO # 0.3 (0.1-0.6); MONO % 12.1 % (1.7-9.3); PLATELET COUNT 50 K/mm3 (130-400); RED BLOOD COUNT 3.24 M/mm3 (4.10-5.30); REDCELL DISTRIBUTION WIDTH-CV 15.1 % (11.5-14.5)
[2019-05-19 07:00] LABS: ALBUMIN 2.1 gm/dL (3.5-5.0); BILIRUBIN,TOTAL 2.2 mg/dL (0.0-1.0); CREATININE, serum 0.43 (0.52-1.25); POTASSIUM 3.8 mmol/L (3.4-5.0)
[2019-05-19 07:25] LABS: HEMATOCRIT 32.8 % (37.0-47.0)
[2019-05-19 08:45] VITALS: BP 118/60; PULSE 80; TEMP 98.3
--- NOTE | 2019-05-19 09:25 | NUR ---
PATIENT ASSESSMENT COMPLETED. SHE IS ASSISTED TO THE RESTROOM WITHOUT DIFFICULTY. SHE IS STEADY ON HER FEET.
[2019-05-19 11:56] VITALS: BP 119/64; PULSE 87; TEMP 98.6
[2019-05-19] MEDS ORDERED: ALDACTONE 100M100 MG PO (13:35)
[2019-05-19] MEDS ORDERED: LASIX 40MG TABL40 MG PO (13:35)
--- NOTE | 2019-05-19 16:03 | NUR ---
PATIENT DISCHARGE INSTRUCTIONS GIVEN TO PATIENT. SHE REFUSES TO TAKE A SHOWER BEFORE SHE GOES HOME.
--- NOTE | 2019-05-19 16:20 | NUR ---
PATIENT DISCHARGED TO HOME VIA WHEELCHAIR. CAB VOUCHER GIVEN TO PATIENT.
== END 2019-05-19 16:20 | disposition home or self-care (01) | DRG 432 ==
LOC: COL.ER 12:47 → MEDICAL 14:52
PROVIDERS: Emergency Medicine; Nurse Practitioner Family; Physician Assistant; ADMIT Student in an Organized Health Care Education/Training Program
PROC: 0W990ZZ Drainage of Right Pleural Cavity, Open Approach (ICD-10-PCS; principal; 2019-05-15)
DX: K74.69 Other cirrhosis of liver (principal); J96.01 Acute respiratory failure with hypoxia; J91.8 Pleural effusion in other conditions classified elsewhere; K76.6 Portal hypertension; D61.818 Other pancytopenia; I85.10 Secondary esophageal varices without bleeding; J90 Pleural effusion, not elsewhere classified; E87.3 Alkalosis; K76.81 Hepatopulmonary syndrome; B19.20 Unspecified viral hepatitis C without hepatic coma; E66.01 Morbid (severe) obesity due to excess calories; D73.2 Chronic congestive splenomegaly; I10 Essential (primary) hypertension; E78.5 Hyperlipidemia, unspecified; Z85.3 Personal history of malignant neoplasm of breast; Z87.891 Personal history of nicotine dependence; Z87.440 Personal history of urinary (tract) infections; Z92.21 Personal history of antineoplastic chemotherapy; Z92.3 Personal history of irradiation; Z88.6 Allergy status to analgesic agent
CPT/HCPCS: 99222-AI; 99232-AI; 99239; J1940

== ENCOUNTER 2019-06-20 16:19 | Emergency (ER) | payer MEDICARE, OTHER ==
[~2019-06-20] VITALS: Ht 154.9 cm; Wt 85.5 kg
[~2019-06-20 16:19] MED LIST changes: +LASIX 40MG TABL40 MG PO
[2019-06-20 16:25] VITALS: TEMP 98.7
[2019-06-20 17:20] LABS: BASO % 0.4 % (0.0-2.0); EOS % 1.5 % (0-4.0); GRAN # 1.9 (1.4-6.5); GRAN % 70.9 % (42.2-75.2); HEMOGLOBIN 11.4 g/dl (12.5-16.0); LYMPH # 0.4 (1.2-3.4); LYMPH % 13.2 % (20.0-51.0); MEAN CELL VOLUME 98 fl (80.0-100.0); MEAN CORPUSCULAR HEMOGLOBIN 34 pg (27.0-31.0); MEAN CORPUSCULAR HGB CONC 34 g/dl (33.0-37.0); MEAN PLATELET VOLUME 12.3 fl (7.4-10.4); MONO # 0.4 (0.1-0.6); MONO % 13.6 % (1.7-9.3); RED BLOOD COUNT 3.39 M/mm3 (4.10-5.30); REDCELL DISTRIBUTION WIDTH-CV 14.5 % (11.5-14.5)
[2019-06-20 17:24] LABS: HEMATOCRIT 33.2 % (37.0-47.0)
[2019-06-20 17:25] LABS: PLATELET COUNT 42 K/mm3 (130-400)
[2019-06-20 17:29] LABS: ALANINE AMINOTRANSFERASE 42 U/L (9-52); ALBUMIN 2.8 gm/dL (3.5-5.0); ALKALINE PHOSPHATASE 106 U/L (50-136); ANION GAP 7 mmol/L (7-16); AST,SGOT 59 U/L (15-37); BILIRUBIN,TOTAL 3.3 mg/dL (0.0-1.0); BLOOD UREA NITROGEN 21 mg/dL (7-17); CALCIUM 8.1 mg/dL (8.4-10.2); CARBON DIOXIDE 20 mmol/L (22-30); CHLORIDE 107 mmol/L (98-107); CREATININE, serum 0.47 (0.52-1.25); GLUCOSE 82 mg/dL (74-106); POTASSIUM 3.8 mmol/L (3.4-5.0); SODIUM 134 mmol/L (137-145); TOTAL PROTEIN 7.1 gm/dL (6.4-8.2)
[2019-06-20 17:30] LABS: C-REACTIVE PROTEIN < 0.5 mg/dL (0.0-0.9)
[2019-06-20] MEDS ORDERED: TAMIFLU 75MG75 MG PO (18:28)
[2019-06-20 19:07] VITALS: BP 107/67; PULSE 94
--- NOTE | 2019-06-21 16:46 | NUR ---
BABITA received a consult from the ED on the patient. BABITA was then contacted by admissions that the patient's family was here and had questions for BABITA. BABITA then met with the patient's daughters: June Das (ph#[phone]) and Soraya Monten[place]ro. The patient's advanced directives are in EMR. Her DPOA-HC is her daughter, June. June reports that the patient is at home with her son (Glenn) at this time. The patient's daughters report that the patient was in the ED last night and that she was prescribed Tamiflu. They report that them and the patient are unable to afford this. They had the Tamiflu script. BABITA provided the patient's daughters with a med voucher to [facility]. Total: $49.78. BABITA also contacted and faxed the med voucher and script to Dona at [facility]. The patient's daughers report that the patient has ESLD and that she has often voiced wanting to switch to hospice care. June states that the patient prefers the [facility] and that they would be agreeable to BABITA to send a referral [facility]. BABITA contacted and faxed a referral to Pr[facility] at [facility]. Prabhjot reports that she will be in touch with the patient and her daughters. No additional needs at this time.
[2019-06-21] MEDS ORDERED: PRIL40 PO (22:42)
== END 2019-06-20 19:07 | disposition home or self-care (01) ==
LOC: COL.ER 16:19
PROVIDERS: Emergency Medicine
DX: J09.X2 Influenza due to identified novel influenza A virus with other respiratory manifestations (principal); I10 Essential (primary) hypertension; E78.5 Hyperlipidemia, unspecified; E66.01 Morbid (severe) obesity due to excess calories; Z68.35 Body mass index [BMI] 35.0-35.9, adult; Z90.89 Acquired absence of other organs; Z85.3 Personal history of malignant neoplasm of breast
CPT/HCPCS: J1644; J7030

== ENCOUNTER 2019-06-21 17:22 | Inpatient (IN) | payer MEDICARE, OTHER ==
[~2019-06-21] VITALS: Ht 154.9 cm; Wt 86.5 kg
[~2019-06-21 17:22] MED LIST changes: +TAMIFLU 75MG75 MG PO
[2019-06-21 18:49] LABS: MEAN CELL VOLUME 98 fl (80.0-100.0); MEAN CORPUSCULAR HEMOGLOBIN 33 pg (27.0-31.0); MEAN CORPUSCULAR HGB CONC 34 g/dl (33.0-37.0); MEAN PLATELET VOLUME 11.5 fl (7.4-10.4); RED BLOOD COUNT 3.29 M/mm3 (4.10-5.30); REDCELL DISTRIBUTION WIDTH-CV 14.6 % (11.5-14.5)
[2019-06-21 18:50] LABS: HEMATOCRIT 32.3 % (37.0-47.0)
[2019-06-21 18:51] LABS: PLATELET COUNT 35 K/mm3 (130-400)
[2019-06-21 18:56] LABS: COLLECTION METHOD CLEAN CATCH
[2019-06-21 19:01] LABS: ALBUMIN 2.5 gm/dL (3.5-5.0); BILIRUBIN,TOTAL 1.9 mg/dL (0.0-1.0); C-REACTIVE PROTEIN 1.2 mg/dL (0.0-0.9); CALCIUM 7.9 mg/dL (8.4-10.2); CREATININE, serum 0.54 (0.52-1.25); POTASSIUM 4.2 mmol/L (3.4-5.0); TOTAL PROTEIN 6.7 gm/dL (6.4-8.2)
[2019-06-21 19:08] LABS: MUCOUS Present /lpf; PH 7 (5-8); URINE APPEARANCE Hazy; URINE BACTERIA Rare /hpf; URINE BILIRUBIN Negative (NEGATIVE); URINE BLOOD 1+ (NEGATIVE); URINE COLOR Amber; URINE GLUCOSE Negative (NEGATIVE); URINE KETONE Negative (NEGATIVE); URINE LEUKOCYTE ESTERASE 2+ (NEGATIVE); URINE NITRATE Positive (NEGATIVE); URINE PROTEIN(semi-quant) 1+ (NEGATIVE); URINE UROBILINOGEN >=4.0 mg/dL (NEGATIVE)
[2019-06-21 19:17] LABS: BAND 4 % (0-10); LYMPHOCYTE 16 % (20.0-51.0); NEUTROPHILS 71 % (42.0-75.2); PLATELET ESTIMATE DECREASED (NORMAL)
--- NOTE | 2019-06-21 21:43 | NUR ---
Arrived to medical floor at this time. Call light in reach.
[2019-06-21 21:49] VITALS: BP 113/63; PULSE 97; TEMP 98.7
[2019-06-21] MEDS ORDERED: PRIL40 PO (22:42)
--- NOTE | 2019-06-21 22:45 | NUR ---
Resting in bed. Assessment complete. Left lower lobe diminshed otherwise clear. Heart sounds normal. Bowels active x4. Pulses present throughout. No edema noted at this time. PAC to right chest appears free of complications. Denies pain. Requested "something to eat" at this time. Will provide to patient. Denies other needs. Call light in reach.
--- NOTE | 2019-06-22 04:06 | NUR ---
Resting in bed. Denies needs. Call light in reach.
[2019-06-22 04:39] VITALS: BP 117/63; PULSE 89; TEMP 98.6
--- NOTE | 2019-06-22 06:11 | NUR ---
Patient had uneventful night. Resting in bed this AM.
--- NOTE | 2019-06-22 06:51 | NUR ---
Report given to QUEENIE Singer
[2019-06-22 07:04] LABS: HEMOGLOBIN 10.4 g/dl (12.5-16.0); MEAN CELL VOLUME 100 fl (80.0-100.0); MEAN CORPUSCULAR HEMOGLOBIN 33 pg (27.0-31.0); MEAN CORPUSCULAR HGB CONC 34 g/dl (33.0-37.0); MEAN PLATELET VOLUME 11.7 fl (7.4-10.4); RED BLOOD COUNT 3.11 M/mm3 (4.10-5.30); REDCELL DISTRIBUTION WIDTH-CV 14.9 % (11.5-14.5)
[2019-06-22 07:13] LABS: PLATELET COUNT 30 K/mm3 (130-400)
[2019-06-22 07:14] LABS: INR 1.4 (0.8-3.0); PROTHROMBIN TIME 16.2 SECONDS (9.7-12.8)
[2019-06-22 07:18] LABS: ALBUMIN 2.3 gm/dL (3.5-5.0); BILIRUBIN,TOTAL 1.5 mg/dL (0.0-1.0); CALCIUM 7.7 mg/dL (8.4-10.2); CREATININE, serum 0.53 (0.52-1.25); MAGNESIUM 1.7 mg/dL (1.6-2.3); POTASSIUM 3.5 mmol/L (3.4-5.0); TOTAL PROTEIN 6.3 gm/dL (6.4-8.2)
[2019-06-22 09:22] VITALS: BP 98/56; PULSE 91; TEMP 98.1
--- NOTE | 2019-06-22 10:15 | NUR ---
PATIENT ASSESSMENT COMPLETED. SHE IS RESTING IN BED WATCHING TV. SHE DENIES ANY NEEDS AT THIS TIME.
[2019-06-22 10:21] LABS: BAND 8 % (0-10); LYMPHOCYTE 28 % (20.0-51.0); NEUTROPHILS 56 % (42.0-75.2)
[2019-06-22 12:00] VITALS: BP 94/38; PULSE 102; TEMP 98.6
--- NOTE | 2019-06-22 14:58 | NUR ---
Plan: To go to [facility] for SNF. Assess: SW met with patient about plan. Patient reports that she is currently homeless and had been staying in a trailer with her two DTRs when it was condemned by the city. Patient reports that she has a son that could let her stay with support such as [facility]. Patient reports having severe weakness in her legs. Patient reports that her additonal family is in [place]. Patient reports that her PCP is Dr. Camille Swenson with [facility]. Patient states that her DPOA is her daughter Soraya Gamble and June Das . Client reports that she use [facility] for RX and a walker. Patient indicated that she does not have the strength for the wheelchair and probably needs a motorized one. Patient signed a choice form for [facility]. Action: SW faxed referral to [facility], waiting on screen result.
[2019-06-22 16:00] VITALS: BP 111/71; PULSE 88; TEMP 98.9
--- NOTE | 2019-06-22 18:30 | NUR ---
Pt meet and greet and report received from day shift nurse. Pt denies any wants/needs or concerns at this time and presents with no s/s of distress at this time. Will continue to monitor.
[2019-06-22 19:39] VITALS: BP 110/63; PULSE 91; TEMP 97.8
--- NOTE | 2019-06-22 22:54 | NUR ---
Pt resting in bed peacefully watching tv with call light within reach and beverages on bedside table. No S/S of distress noted and patient denies wants/needs at this time.
[2019-06-22 22:59] VITALS: BP 128/67; PULSE 97; TEMP 98.4
[2019-06-23 03:29] VITALS: BP 113/61; PULSE 85; TEMP 97.9
--- NOTE | 2019-06-23 04:20 | NUR ---
PT watching tv and resting peacefully in bed with no s/s of distress. Will continue to monitor.
--- NOTE | 2019-06-23 06:33 | NUR ---
PT resting peacefully in bed with no s/s of distress noted. Call light within reach.
--- NOTE | 2019-06-23 07:13 | NUR ---
PT report given to Luisa JEROME
--- NOTE | 2019-06-23 07:55 | NUR ---
Assessment complete. Patient sitting up in bed for breakfast. No complaints of pain or discomfort at this time. IV site CD&I. Patient is aware of POC. SCDs in place at this time. Patient is aware to use them while in bed. Croplet precautions in place. No further needs exprssed at this time. Call light is within reach.
[2019-06-23 08:44] VITALS: PULSE 83; TEMP 97.4
[2019-06-23 10:44] LABS: HEMOGLOBIN 10.6 g/dl (12.5-16.0); MEAN CELL VOLUME 100 fl (80.0-100.0); MEAN CORPUSCULAR HEMOGLOBIN 34 pg (27.0-31.0); MEAN CORPUSCULAR HGB CONC 34 g/dl (33.0-37.0); MEAN PLATELET VOLUME 12.8 fl (7.4-10.4); RED BLOOD COUNT 3.15 M/mm3 (4.10-5.30); REDCELL DISTRIBUTION WIDTH-CV 14.9 % (11.5-14.5)
[2019-06-23 10:54] LABS: CALCIUM 8.1 mg/dL (8.4-10.2); CREATININE, serum 0.42 (0.52-1.25); POTASSIUM 4.2 mmol/L (3.4-5.0)
[2019-06-23 10:55] LABS: HEMATOCRIT 31.4 % (37.0-47.0)
[2019-06-23 10:56] LABS: PLATELET COUNT 38 K/mm3 (130-400)
[2019-06-23 11:16] LABS: BAND 13 % (0-10); EOSINOPHIL 3 % (0-4); LYMPHOCYTE 28 % (20.0-51.0); NEUTROPHILS 45 % (42.0-75.2); PLATELET ESTIMATE DECREASED (NORMAL)
[2019-06-23 12:00] VITALS: BP 97/43; PULSE 92; TEMP 97.6
[2019-06-23 15:32] VITALS: BP 93/60; PULSE 94; TEMP 98.2
--- NOTE | 2019-06-23 17:24 | NUR ---
Patient has had an uneventful day. No pain or discomfort reported. Portacath site CD&I, flushed and rafaela well. Droplet precautions in place at this time. Patient is aware of her POC. No further needs expressed at this time. Call light is within reach.
[2019-06-23 20:00] VITALS: BP 120/65; PULSE 97; TEMP 98.4
--- NOTE | 2019-06-23 20:40 | NUR ---
Patient assessed at this time. Alert and oriented x 4, and able to make needs known. Denies having pain and discomfort at this time. Portacath flushed. Site without redness, warmth, swelling, and pain. Dressing to area CDI. LS CTA. Respirations even and unlabored. Denies SOB and dyspnea. HRR. Capillary refill less than 3 seconds. Non-tenting skin turgor. BSAx4. Abdomen soft and non-tender. 1+ edema BLE. Voices no questions, needs, or concerns at this time. Resting in bed with call light within reach.
[2019-06-24 00:17] VITALS: BP 104/62; PULSE 91; TEMP 98.1
[2019-06-24 04:00] VITALS: BP 103/68; PULSE 86; TEMP 98.1
--- NOTE | 2019-06-24 05:32 | NUR ---
Patient has had no complaints of pain or discomfort this shift. Has been taking self to the bathroom. Resting in bed with call light within reach.
[2019-06-24 06:01] LABS: HEMOGLOBIN 11.3 g/dl (12.5-16.0); MEAN CELL VOLUME 101 fl (80.0-100.0); MEAN CORPUSCULAR HEMOGLOBIN 33 pg (27.0-31.0); MEAN CORPUSCULAR HGB CONC 33 g/dl (33.0-37.0); PLATELET COUNT 51 K/mm3 (130-400); RED BLOOD COUNT 3.42 M/mm3 (4.10-5.30)
[2019-06-24 06:09] LABS: HEMATOCRIT 34.6 % (37.0-47.0)
[2019-06-24 06:12] LABS: CALCIUM 8.2 mg/dL (8.4-10.2); CREATININE, serum 0.5 (0.52-1.25); POTASSIUM 4.8 mmol/L (3.4-5.0)
[2019-06-24 06:43] LABS: BAND 13 % (0-10); EOSINOPHIL 1 % (0-4); LYMPHOCYTE 24 % (20.0-51.0); METAMYELOCYTE 3 % (0-0); NEUTROPHILS 49 % (42.0-75.2); PLATELET ESTIMATE DECREASED (NORMAL)
[2019-06-24 06:44] LABS: OVALOCYTES 1+
[2019-06-24 09:04] VITALS: BP 132/55; PULSE 84; TEMP 98.9
--- NOTE | 2019-06-24 10:02 | NUR ---
SHIFT ASSESSMENT DONE AROUND 0800 THIS AM. PATIENT WAS RESTING IN BED PRIOR TO MY ARRIVAL. [facility] ON TRAY FOR PATIENT TO EAT. PATIENT HAD NO COMPLAINS OF DIZZINESS, SHORTNESS OF BREATH, OR [place]/VOMITING. PATIENT TOOK HER TAMIFLU WITH NO DIFFICULTIES. PATIENT TALKED TO THIS NURSE ABOUT WANTING TO SPEAK TO SOCIAL WORK ABOUT HER TRANSFER. LUNG SOUNDS ARE CLEAR BILATERALLY AND HEART SOUNDS S1&S2. CALL LIGHT WITHIN REACH.
[2019-06-24 12:40] VITALS: BP 106/44; PULSE 83; TEMP 98.6
[2019-06-24] MEDS ORDERED: OMNICEF 300MG300 MG PO (13:09)
[2019-06-24] MEDS ORDERED: TAMIFLU 75MG75 MG PO (13:10)
--- NOTE | 2019-06-24 14:57 | NUR ---
PATIENT IS SITTING ON HER BED AT THIS TIME LOOKING AT THE DINNER MENU AND TALKING ABOUT WHAT SHE WANTS. TOOK HER ANTIBIOTIC WITHOUT ISSUES. NO COMPLAINTS AT THIS TIME. CALL LIGHT WITHIN REACH AND INSTRUCTED TO CALL OF SHE NEEDS ANYTHING.
--- NOTE | 2019-06-24 16:31 | NUR ---
PATIENT IS SITTING IN BED EATING HER SALAD FROM LUNCH AND THEN ASKED FOR JELLO. PATIENT STARTED EATING JELLO BEFORE THIS NURSE LEFT THE FLOOR. NO COMPLAINTS AT THIS TIME.
--- NOTE | 2019-06-24 16:45 | NUR ---
Kraig, at [facility], reports that they are able to accept the patient for a skilled stay tomorrow, 06/25, due to no beds today. BABITA faxed updates to [facility]. BABITA to update the patient and will continue to follow.
[2019-06-24 17:46] VITALS: BP 109/54; PULSE 81; TEMP 98.2
--- NOTE | 2019-06-24 18:10 | NUR ---
PATIENT IS RESTING IN BED AT THIS TIME AWAITING DINNER. SHE IS AWAITING DISPARTURE TO [facility] ONCE EVERYTHING IS WORKED OUT AND WE GET THE OK. PATIENT HAS HAD A GOOD DAY WITH NO COMPLAINTS AT THIS TIME.
--- NOTE | 2019-06-24 21:00 | NUR ---
Patient assessed at this time. Alert and oriented x 4, and able to make needs known. Denies having pain and discomfort. Portacath flushed. Dressing CDI. Site without redness, warmth, swelling, and pain. Denies SOB and dyspnea. LS CTA. Respirations even and unlabored. HRR. Capillary refill less than 3 seconds. Non-tenting skin turgor. BSAx4. Abdomen soft and non-tender. No edema. Voices no questions, needs, or concerns at this time. Resting in bed watching TV at this time. Call light is within reach.
[2019-06-24 22:18] VITALS: BP 102/51; PULSE 83; TEMP 97.6
[2019-06-25 04:39] VITALS: BP 116/61; PULSE 75; TEMP 97.9
[2019-06-25 05:59] LABS: HEMOGLOBIN 10.3 g/dl (12.5-16.0); MEAN CELL VOLUME 102 fl (80.0-100.0); MEAN CORPUSCULAR HEMOGLOBIN 33 pg (27.0-31.0); MEAN CORPUSCULAR HGB CONC 33 g/dl (33.0-37.0); MEAN PLATELET VOLUME 12.3 fl (7.4-10.4); REDCELL DISTRIBUTION WIDTH-CV 14.9 % (11.5-14.5)
[2019-06-25 06:06] LABS: HEMATOCRIT 31.5 % (37.0-47.0); PLATELET COUNT 40 K/mm3 (130-400)
[2019-06-25 06:10] LABS: ALBUMIN 2.2 gm/dL (3.5-5.0); BILIRUBIN,TOTAL 1.1 mg/dL (0.0-1.0); CREATININE, serum 0.4 (0.52-1.25); POTASSIUM 4.3 mmol/L (3.4-5.0); TOTAL PROTEIN 6.4 gm/dL (6.4-8.2)
--- NOTE | 2019-06-25 06:14 | NUR ---
Patient has been resting in bed with call light within reach. Denies having pain and discomfort. Voices no questions, needs, or concerns at this time.
[2019-06-25 06:18] LABS: BAND 19 % (0-10); LYMPHOCYTE 35 % (20.0-51.0); NEUTROPHILS 43 % (42.0-75.2)
[2019-06-25 08:22] VITALS: BP 123/59; PULSE 80; TEMP 97.8
--- NOTE | 2019-06-25 10:10 | NUR ---
PATIENT RESTING IN BED AT THIS TIME. SHIFT ASSESSMENT WAS COMPLETED WITH NO MAJOR FINDINGS AT THIS TIME. DENIES ANY SHORTNESS OF BREATHE, DIZZINESS, NAUSEA, OR VOMITING. TOOK MORNING MEDICATIONS WITH EASE AND NO DIFFICULTY. DISCHARGE ORDERS ARE IN ON PATIENT AT THIS TIME. DEPARTURE WILL BE TO [facility] AND WILL BE LEAVING AROUND NOON.
--- NOTE | 2019-06-25 10:14 | NUR ---
The patient is to discharge today, 06/25, to [facility] for a skilled stay. Transportation was scheduled for 1200, via [facility]. BABITA informed the patient and her RN. They were both in agreeance to the time. BABITA also presented and explained the IM form to the patient. The patient verbalized understanding, signed, and she was provided a copy. BABITA also discussed Medicaid. The patient states that she has applied for it in the past, but has never heard back about it. BABITA consulted Financial Counselor, Ida. Ida plans to do a Medicaid application with the patient. No additional needs at this time.
--- NOTE | 2019-06-25 11:50 | NUR ---
PATIENT'S PORTACATH WAS HEPARNIZIED AND DEACCESSED. NO ISSUES OR ANYTHING ABNORMAL DURING THE PROCESS. TEGADERM WITH GAUZE COVERING INSERTION SITE. NO BLEEDING NOTED
[2019-06-25 11:57] VITALS: BP 123/59; PULSE 80; TEMP 97.8
--- NOTE | 2019-06-25 12:29 | NUR ---
PATIENT WAS TRANSPORTED FROM HER ROOM WITH [facility] AT 1220 FROM OUR FACILITY. PATIENT HAD ALL OF HER BELONNINGS WITH HER AND HER MEDICATIONS FROM PHARMACY.
== END 2019-06-25 12:20 | DRG 194 ==
LOC: COL.ER 17:22 → MEDICAL 19:47
PROVIDERS: Emergency Medicine; Physician Assistant; Student in an Organized Health Care Education/Training Program; ADMIT Internal Medicine
DX: J10.1 Influenza due to other identified influenza virus with other respiratory manifestations (principal); N39.0 Urinary tract infection, site not specified; K76.6 Portal hypertension; D61.818 Other pancytopenia; I10 Essential (primary) hypertension; E78.5 Hyperlipidemia, unspecified; K74.60 Unspecified cirrhosis of liver; B19.20 Unspecified viral hepatitis C without hepatic coma; F32.9 Major depressive disorder, single episode, unspecified; R53.81 Other malaise; B96.20 Unspecified Escherichia coli [E. coli] as the cause of diseases classified elsewhere; Z96.651 Presence of right artificial knee joint; Z85.3 Personal history of malignant neoplasm of breast; Z92.21 Personal history of antineoplastic chemotherapy; Z92.3 Personal history of irradiation; Z87.891 Personal history of nicotine dependence; Z88.6 Allergy status to analgesic agent
CPT/HCPCS: 99222-AI; 99232-AI; 99239; A4216; J0696; J1644

== ENCOUNTER → 2019-07-10 | Outpatient (CLI) | payer MEDICARE ==
[2019-07-10 18:15] LABS: BASO % 0.4 % (0.0-2.0); EOS % 1.1 % (0-4.0); GRAN % 72.2 % (42.2-75.2); HEMOGLOBIN 11.3 g/dl (12.5-16.0); IRON,SERUM 124 ug/dL (35-150); LYMPH # 0.5 (1.2-3.4); LYMPH % 17.4 % (20.0-51.0); MEAN CELL VOLUME 102 fl (80.0-100.0); MEAN CORPUSCULAR HEMOGLOBIN 33 pg (27.0-31.0); MEAN CORPUSCULAR HGB CONC 33 g/dl (33.0-37.0); MEAN PLATELET VOLUME 12.9 fl (7.4-10.4); MONO # 0.2 (0.1-0.6); MONO % 8.5 % (1.7-9.3); PLATELET COUNT 51 K/mm3 (130-400); REDCELL DISTRIBUTION WIDTH-CV 15.2 % (11.5-14.5)
[2019-07-10 18:25] LABS: HEMATOCRIT 34.7 % (37.0-47.0); TOTAL IRON BINDING CAPACITY 295 ug/dL (265-497)
[2019-07-12 01:43] LABS: FOLATE (FOLIC ACID) 11.6 ng/mL (>=4.0)
== END ==
LOC: ZLAB.STJ 16:41
PROVIDERS: Internal Medicine Medical Oncology
DX: C50.412 Malignant neoplasm of upper-outer quadrant of left female breast (principal); M12.9 Arthropathy, unspecified; D61.818 Other pancytopenia

== ENCOUNTER → 2019-07-16 | Outpatient (CLI) | payer MEDICARE ==
[2019-07-16 12:00] LABS: MEAN CELL VOLUME 103 fl (80.0-100.0); MEAN CORPUSCULAR HEMOGLOBIN 34 pg (27.0-31.0); MEAN CORPUSCULAR HGB CONC 33 g/dl (33.0-37.0); MEAN PLATELET VOLUME 12.5 fl (7.4-10.4); RED BLOOD COUNT 3.25 M/mm3 (4.10-5.30)
[2019-07-16 12:11] LABS: CALCIUM 8.5 mg/dL (8.4-10.2); CREATININE, serum 0.64 (0.52-1.25); POTASSIUM 4.3 mmol/L (3.4-5.0)
[2019-07-16 12:23] LABS: HEMATOCRIT 33.3 % (37.0-47.0)
[2019-07-16 12:28] LABS: PLATELET COUNT 47 K/mm3 (130-400)
[2019-07-16 12:52] LABS: BAND 4 % (0-10); EOSINOPHIL 1 % (0-4); LYMPHOCYTE 27 % (20.0-51.0); NEUTROPHILS 60 % (42.0-75.2)
[2019-07-16 12:53] LABS: PLATELET ESTIMATE DECREASED (NORMAL)
[2019-07-16 14:40] LABS: COLLECTION METHOD CLEAN CATCH
[2019-07-16 14:56] LABS: MUCOUS Present /lpf; PH 5 (5-8); SQUAMOUS EPITHELIAL 0-2 /hpf; URINE APPEARANCE Cloudy; URINE BACTERIA Rare /hpf; URINE BILIRUBIN Negative (NEGATIVE); URINE BLOOD 2+ (NEGATIVE); URINE COLOR Yellow; URINE GLUCOSE Negative (NEGATIVE); URINE KETONE Negative (NEGATIVE); URINE LEUKOCYTE ESTERASE 3+ (NEGATIVE); URINE NITRATE Negative (NEGATIVE); URINE PROTEIN(semi-quant) Negative (NEGATIVE); URINE RBC 20-50 /hpf
[2019-07-17 05:08] LABS: FOLATE (FOLIC ACID) 11.5 ng/mL (>=4.0)
== END ==
LOC: ZLAB.STJ 10:57
PROVIDERS: Family Medicine
DX: J10.1 Influenza due to other identified influenza virus with other respiratory manifestations (principal); N39.0 Urinary tract infection, site not specified

== ENCOUNTER → 2019-07-17 | Outpatient (CLI) | payer MEDICARE | LOC: ZLAB.STJ 10:15 | DX: K74.69 Other cirrhosis of liver (principal) ==

== ENCOUNTER → 2019-07-26 | Outpatient (CLI) | payer MEDICARE ==
[2019-07-26 17:03] LABS: BASO % 0.3 % (0.0-2.0); EOS % 0.3 % (0-4.0); GRAN # 2.2 (1.4-6.5); GRAN % 69.4 % (42.2-75.2); LYMPH # 0.6 (1.2-3.4); LYMPH % 20.2 % (20.0-51.0); MEAN CELL VOLUME 98 fl (80.0-100.0); MEAN CORPUSCULAR HEMOGLOBIN 34 pg (27.0-31.0); MEAN CORPUSCULAR HGB CONC 34 g/dl (33.0-37.0); MEAN PLATELET VOLUME 12.9 fl (7.4-10.4); MONO # 0.3 (0.1-0.6); MONO % 9.5 % (1.7-9.3); PLATELET COUNT 58 K/mm3 (130-400); RED BLOOD COUNT 3.57 M/mm3 (4.10-5.30)
[2019-07-26 17:08] LABS: HEMATOCRIT 35.1 % (37.0-47.0)
== END ==
LOC: ZLAB.STJ 16:10
PROVIDERS: Family Medicine
DX: E72.20 Disorder of urea cycle metabolism, unspecified (principal)

== ENCOUNTER → 2019-08-05 | Outpatient (CLI) | payer MEDICARE | LOC: ZLAB.STJ 13:48 | DX: K74.60 Unspecified cirrhosis of liver (principal) ==

== ENCOUNTER → 2019-08-14 | Outpatient (CLI) | payer MEDICARE, MEDICAID ==
[2019-08-14 15:23] LABS: BASO % 0.3 % (0.0-2.0); EOS % 1.3 % (0-4.0); GRAN # 2.1 (1.4-6.5); GRAN % 68.6 % (42.2-75.2); HEMATOCRIT 37.5 % (37.0-47.0); HEMOGLOBIN 12.5 g/dl (12.5-16.0); LYMPH # 0.7 (1.2-3.4); LYMPH % 20.8 % (20.0-51.0); MEAN CELL VOLUME 101 fl (80.0-100.0); MEAN CORPUSCULAR HEMOGLOBIN 34 pg (27.0-31.0); MEAN CORPUSCULAR HGB CONC 33 g/dl (33.0-37.0); MEAN PLATELET VOLUME 11.7 fl (7.4-10.4); MONO # 0.3 (0.1-0.6); MONO % 8.7 % (1.7-9.3); PLATELET COUNT 60 K/mm3 (130-400); RED BLOOD COUNT 3.72 M/mm3 (4.10-5.30); REDCELL DISTRIBUTION WIDTH-CV 14.3 % (11.5-14.5)
== END ==
LOC: ZLAB.STJ 14:36
PROVIDERS: Family Medicine
DX: R68.89 Other general symptoms and signs (principal)

== ENCOUNTER → 2019-08-19 | Outpatient (CLI) | payer MEDICARE, MEDICAID ==
[2019-08-19 19:02] LABS: COLLECTION METHOD CLEAN CATCH
[2019-08-19 19:30] LABS: MUCOUS Present /lpf; PH 5 (5-8); URINE APPEARANCE Hazy; URINE BACTERIA Moderate /hpf; URINE BILIRUBIN Negative (NEGATIVE); URINE BLOOD 1+ (NEGATIVE); URINE CALCIUM OXALATE CRYSTAL Present /hpf; URINE COLOR Yellow; URINE GLUCOSE Negative (NEGATIVE); URINE KETONE Negative (NEGATIVE); URINE LEUKOCYTE ESTERASE 1+ (NEGATIVE); URINE NITRATE Positive (NEGATIVE); URINE PROTEIN(semi-quant) Negative (NEGATIVE); URINE RBC 0-2 /hpf
== END ==
LOC: ZCOL.LAB 18:43
PROVIDERS: Family Medicine
DX: N39.0 Urinary tract infection, site not specified (principal)

== ENCOUNTER 2020-08-04 09:33 | Emergency (ER) | payer MEDICARE, MEDICAID ==
[~2020-08-04] VITALS: Ht 154.9 cm; Wt 101.8 kg
[2020-08-04 14:15] LABS: ALANINE AMINOTRANSFERASE 37 U/L (4-34); ALBUMIN 3.5 gm/dL (3.5-5.0); ALKALINE PHOSPHATASE 95 U/L (50-136); ANION GAP 8 mmol/L (7-16); AST,SGOT 55 U/L (15-37); BILIRUBIN,TOTAL 3.8 mg/dL (0.0-1.0); BLOOD UREA NITROGEN 18 mg/dL (7-17); CALCIUM 9.1 mg/dL (8.4-10.2); CARBON DIOXIDE 24 mmol/L (22-30); CHLORIDE 107 mmol/L (98-107); CREATININE, serum 0.59 (0.52-1.25); GLUCOSE 91 mg/dL (74-106); POTASSIUM 4.2 mmol/L (3.4-5.0); SODIUM 139 mmol/L (137-145)
[2020-08-04 14:27] LABS: TROPONIN-I < 0.012 ng/mL (0.000-0.035)
[2020-08-04 15:25] VITALS: BP 106/62; PULSE 88; TEMP 98.3
[2020-10-17] MEDS ORDERED: MACROBID 1100 MG/CAP PO (13:56)
== END 2020-08-04 15:27 | disposition home or self-care (01) ==
LOC: COL.ER 09:33
PROVIDERS: Emergency Medicine
DX: R53.81 Other malaise (principal); R53.83 Other fatigue; W19.XXXA Unspecified fall, initial encounter

== ENCOUNTER 2020-10-13 11:10 | Emergency (ER) | payer MEDICARE, MEDICAID ==
[~2020-10-13] VITALS: Ht 157.5 cm; Wt 101.8 kg
[2020-10-13 12:13] LABS: HEMOGLOBIN 10.8 g/dl (12.5-16.0); MEAN CELL VOLUME 99 fl (80.0-100.0); MEAN CORPUSCULAR HEMOGLOBIN 32 pg (27.0-31.0); MEAN CORPUSCULAR HGB CONC 33 g/dl (33.0-37.0); MEAN PLATELET VOLUME 12.2 fl (7.4-10.4); RED BLOOD COUNT 3.33 M/mm3 (4.10-5.30); REDCELL DISTRIBUTION WIDTH-CV 14.1 % (11.5-14.5)
[2020-10-13 12:15] LABS: HEMATOCRIT 32.9 % (37.0-47.0); PLATELET COUNT 39 K/mm3 (130-400)
[2020-10-13 12:30] LABS: ALANINE AMINOTRANSFERASE 25 U/L (4-34); ALBUMIN 2.9 gm/dL (3.5-5.0); ALKALINE PHOSPHATASE 96 U/L (50-136); ANION GAP 4 mmol/L (7-16); AST,SGOT 43 U/L (15-37); BILIRUBIN,TOTAL 1.6 mg/dL (0.0-1.0); BLOOD UREA NITROGEN 16 mg/dL (7-17); CALCIUM 8.4 mg/dL (8.4-10.2); CARBON DIOXIDE 25 mmol/L (22-30); CHLORIDE 111 mmol/L (98-107); CREATININE, serum 0.44 (0.52-1.25); GLUCOSE 79 mg/dL (74-106); LIPASE 150 U/L (23-300); POTASSIUM 4.1 mmol/L (3.4-5.0); SODIUM 140 mmol/L (137-145); TOTAL PROTEIN 7.2 gm/dL (6.4-8.2)
[2020-10-13 12:31] LABS: C-REACTIVE PROTEIN < 0.5 mg/dL (0.0-0.9)
[2020-10-13 12:32] LABS: COLLECTION METHOD CLEAN CATCH
[2020-10-13 12:40] LABS: MUCOUS Present /lpf; PH 7 (5-8); URINE APPEARANCE Hazy; URINE BACTERIA Many /hpf; URINE BILIRUBIN Negative (NEGATIVE); URINE BLOOD Negative (NEGATIVE); URINE COLOR Yellow; URINE GLUCOSE Negative (NEGATIVE); URINE KETONE Negative (NEGATIVE); URINE LEUKOCYTE ESTERASE Trace (NEGATIVE); URINE NITRATE Positive (NEGATIVE); URINE PROTEIN(semi-quant) Negative (NEGATIVE); URINE RBC 0-2 /hpf; URINE UROBILINOGEN >=4.0 mg/dL (NEGATIVE)
[2020-10-13 12:50] LABS: BAND 10 % (0-10); LYMPHOCYTE 14 % (20.0-51.0); NEUTROPHILS 70 % (42.0-75.2); PLATELET ESTIMATE DECREASED (NORMAL)
[2020-10-13] MEDS ORDERED: OMNICEF 300MG300 MG PO (13:29)
[2020-10-13 14:27] VITALS: BP 123/84; PULSE 82; TEMP 98.1
--- NOTE | 2020-10-13 14:31 | NUR ---
[employer] received consult for patient who was brought in by family. Per ED Physician, patient's family wanted patient to be diagnosed with dementia and placed in a detention. BABITA met with patient and her daughter, June (ph#[phone]) who live together in [place]. Patient reports she has been trying to get into [facility] for some time now. Patient uses a walker for ambulation and states that getting around at home can be difficult for her. Patient lives with her daughters, June and Soraya. SW advised patient and June that per ED Physician, it seems patient will not be admitted and that it is likely placement cannot be arranged today. Patient and June verbalize understanding and are agreeable with patient returning home with family until placement can be found. SW discussed other local SNF options so that multiple referrals can be sent. Patient does not want referrals sent to [facility] or [facility] [facility]. Patient is agreeable to have referrals sent to both [facility] and [facility] in [place]. BBAITA contacted both facilities and faxed referrals. Montse at [facility] advised they have reviewed patient before and have declined in the past, however would be open to reviewing again. BABITA provided contact information to both facilities to patient's daughter, June. BABITA also contacted Adina at [facility] who advised they just discharged patient recently and the family has been looking into placement for patient. BABITA met with patient and June to provide update and again, patient is agreeable to return home with family until terminal computer operator care placement can be found. Patient would like to update her DPOA-HC to her two local daughters, June and Soraya. BABITA assisted patient in completing the form. BABITA and RNRosemarie provided witness signature. BABITA placed copy on patient's chart then provided original and copies to patient. BABITA collaborated the above information to ED Physician.
--- NOTE | 2020-10-13 15:25 | NUR ---
Montse with [facility] states they decline patient for admission into their terminal computer operator care units.
--- NOTE | 2020-10-14 10:28 | NUR ---
An/Syq 13 Nav/C2 Operator made report to [facility] (intake #[id number]).
[2020-10-17] MEDS ORDERED: MACROBID 1100 MG/CAP PO (13:56)
--- NOTE | 2020-10-23 12:22 | NUR ---
plant production worker contacted Agueda at [facility] (patient's primary care office) and advised that the pharmacy told our ED provider, Dr Tijerina that they have 3 different antibiotics order for patient's UTI and that no family has picked them up. Agueda will advise Camille Swenson (provider) of the above information. Our staff made an [facility] report, previsouly in September.
== END 2020-10-13 14:27 | disposition home or self-care (01) ==
LOC: COL.ER 11:10
PROVIDERS: Family Medicine
DX: K72.90 Hepatic failure, unspecified without coma (principal); E72.20 Disorder of urea cycle metabolism, unspecified; K76.6 Portal hypertension; Z88.6 Allergy status to analgesic agent; Z87.891 Personal history of nicotine dependence
CPT/HCPCS: J0696; J2405

== ENCOUNTER 2020-11-20 19:37 | Emergency (ER) | payer MEDICARE, MEDICAID ==
[~2020-11-20] VITALS: Ht 154.9 cm; Wt 102.7 kg
[~2020-11-20 19:37] MED LIST changes: +MACROBID 1100 MG/CAP PO
[2020-11-20 20:35] LABS: HEMOGLOBIN 10.7 g/dl (12.5-16.0); MEAN CELL VOLUME 99 fl (80.0-100.0); MEAN CORPUSCULAR HEMOGLOBIN 32 pg (27.0-31.0); MEAN CORPUSCULAR HGB CONC 32 g/dl (33.0-37.0); MEAN PLATELET VOLUME 12.2 fl (7.4-10.4); RED BLOOD COUNT 3.35 M/mm3 (4.10-5.30); REDCELL DISTRIBUTION WIDTH-CV 13.7 % (11.5-14.5)
[2020-11-20 20:43] LABS: ALBUMIN 2.8 gm/dL (3.5-5.0); BILIRUBIN,TOTAL 2.4 mg/dL (0.0-1.0); CALCIUM 8.3 mg/dL (8.4-10.2); CREATININE, serum 0.5 (0.52-1.25); HEMATOCRIT 33.1 % (37.0-47.0); POTASSIUM 3.7 mmol/L (3.4-5.0)
[2020-11-20 20:44] LABS: PLATELET COUNT 35 K/mm3 (130-400)
[2020-11-20 21:37] LABS: BAND 8 % (0-10); LYMPHOCYTE 12 % (20.0-51.0); NEUTROPHILS 78 % (42.0-75.2); PLATELET ESTIMATE DECREASED (NORMAL); POIKILOCYTOSIS 1+
[2020-11-20 21:38] LABS: ANISOCYTOSIS 1+; HYPOCHROMIA 1+
[2020-11-20] MEDS ORDERED: LASIX 40MG TABL40 MG PO (23:27)
[2020-11-21 00:24] VITALS: BP 107/68; PULSE 89; TEMP 98.6
== END 2020-11-21 00:22 | disposition home or self-care (01) ==
LOC: COL.ER 19:37
PROVIDERS: Personal Emergency Response Attendant
DX: J06.9 Acute upper respiratory infection, unspecified (principal); M79.89 Other specified soft tissue disorders; R60.0 Localized edema; I10 Essential (primary) hypertension; Z20.822 Contact with and (suspected) exposure to COVID-19; Z96.651 Presence of right artificial knee joint
CPT/HCPCS: J1644; J1940